=== PATIENT | female | born 1960 | race Caucasian/White ===

== ENCOUNTER 2017-06-10 16:08 | Observation (INO) | payer MEDICARE, SELFPAY ==
[2017-06-10 16:46] VITALS: BP 141/82; PULSE 104; RESP 20; TEMP 36.9; O2SAT 93; BMI 34.2
[2017-06-10 20:00] VITALS: BP 143/88; PULSE 79; RESP 18; TEMP 36.6; O2SAT 98
[2017-06-10 21:15] VITALS: O2SAT 98
[2017-06-11] VITALS (14 sets, daily range): BP systolic 99–169; BP diastolic 60–95; PULSE 59–89; RESP 16–20; TEMP 36.3–36.8; O2SAT 95–99
--- NOTE | 2017-06-11 01:00 | PC.NURSE ---
PT HAS C/O OF ABDOMINAL PAIN, EPIGASTRIC DISCOMFORT EXTENDING TO (L) OF ABD TO HER BACK. MD WAS NOTIFIED OF PT CONDITION. NO ORDERS AT THIS TIME. NO OCCULT STOOL OBTAINED AT THIS TIME. PT STATES SHE HAS NOT HAD A BM. V/S HAVE REMAINED STABLE. PT IS NPO AT THIS TIME FOR AM CONSULTS. NO OTHER CONCERNS AT THIS TIME. WILL CONTINUE TO MONITOR.
[2017-06-11 07:08] LABS: Basophils # 0.1 K/mm3 (0-0.2); Basophils % 0.5 % (0.1-2.0); Eosinophils # 0.1 K/mm3 (0.0-0.4); Eosinophils % 1.4 % (0.1-12.0); Hematocrit 41.3 % (37.0-47.0); Hemoglobin 13.8 g/dL (12.2-16.2); Lymphocytes # 3.4 K/mm3 (0.7-4.5); Lymphocytes % 37.9 K/mm3 (10-50); Mean Corpuscular HGB Conc 33.5 g/dL (31.8-35.4); Mean Corpuscular Hemoglobin 30.9 pg (27.0-31.2); Mean Corpuscular Volume 92.4 fl (81-99); Mean Platelet Volume 6.6 fl (7.4-10.4); Monocytes # 0.6 K/mm3 (0.1-1.0); Monocytes % 6.5 % (1.7-9.3); Neutrophils # 4.8 K/mm3 (1.8-7.8); Neutrophils % 53.5 % (37.0-80.0); Platelet Count 263 K/mm3 (142-424); Red Blood Count 4.47 M/mm3 (4.20-5.40); Red Cell Distribution Width 14.3 % (11.5-17.5); White Blood Count 8.9 K/mm3 (4.8-10.8)
--- NOTE | 2017-06-11 07:17 | CA_ITS ---
PROCEDURE: 2-D M-mode and color Doppler study INDICATIONS FOR THE TEST: Chest pain+ COPD Heart Murmur Tobacco Smoking Palpitations+ Fatigue Syncope Edema Hypertension+Diabetes Mellitus+ Rheumatic Fever SOB OV Obesity+Hyperlipidemia+ Family History HD Additional History PATIENT INFORMATION HEIGHT: 63 WEIGHT: 193 GENDER: Female B/P: 125/72 2-D/M-MODE INTERPRETATION: 2-D MEASUREMENTS OBSERVED VALUES IN CMS Right Ventricular Dimension (RVDd) 2.3 Interventricular Septum (Thickness)(IVsd) 1.1 Left Ventricular Internal Dimensions(LVIDd) 4.2 Left Ventricular Posterior Wall (Thickness)(LVPWd) 1.0 Aortic Root 3.0 Aortic Cusp Separation 2.2 Left Atrial Dimensions (LAD) 3.6 2D 1. Left atrium is mildly enlarged, left ventricle is normal size, there is mild concentric left ventricular hypertrophy, visually estimated ejection fraction is 55% with no obvious regional wall motion abnormality 2. The right atrium and right ventricle are normal size and contractility. 3. The aortic, mitral and tricuspid valvular grossly normal. 4. The pulmonic valve is poorly visualized. 5. No significant pericardial effusion noted. DOPPLER INTERROGATION: Doppler interrogation of the aortic, mitral and tricuspid valvular presence of mild mitral and tricuspid regurgitation, tricuspid and jet velocity is insufficient for calculation of the right ventricular systolic pressure, grade 1 diastolic dysfunction seen without tissue Doppler evidence of raised left atrial pressure. CONCLUSION: 1. Mildly enlarged left atrium, normal left ventricular size, mild concentric left ventricular hypertrophy, visually estimated ejection fraction 55% with no obvious regional wall motion abnormality, grade 1 diastolic dysfunction seen without tissue Doppler evidence of raised left atrial pressure. 2. Mild mitral and tricuspid regurgitation 3. No significant pericardial effusion noted.
[2017-06-11 07:18] LABS: Blood Urea Nitrogen 14 mg/dL (7-18); Carbon Dioxide 26 mmol/L (21.0-32.0); Chloride 103 mmol/L (98-107); Creatinine Clearance Estimated 125 mL/min (0-300); Creatinine,Serum 0.69 mg/dL (0.55-1.02); Estimated Glomerular Filt Rate 88 ml/min (>60); GFR (African American) 106 ML/MIN (>60); Glucose 233 mg/dL (74-106); Sodium 140 mmol/L (136-145)
--- NOTE | 2017-06-11 07:37 | PC.NURSE ---
PT REPORT HAND OFF TO MARY ELLIOTT
--- NOTE | 2017-06-11 07:42 | HMH.PHAVTE ---
[facility] Pharmacy VTE Monitoring - Patient Demographics Admission date: 06/10/17 Report Date: 06/11/17 Time: 07:42 Allergies/Adverse Reactions: Patient Allergies morphine [MORPHINE] Allergy (Unknown, Verified 06/10/17 17:39) NA-NAUSEA/VOMITING Height: 1.6 m Weight: 87.77 kg - VTE Risk Labs: VTE Related Lab Results Hgb 13.8 g/dL (12.2-16.2) 06/11/17 06:25 Hct 41.3 % (37.0-47.0) 06/11/17 06:25 Plt Count 263 K/mm3 (142-424) 06/11/17 06:25 BUN 14 mg/dL (7-18) 06/11/17 06:25 Creatinine 0.69 mg/dL (0.55-1.02) 06/11/17 06:25 Estimated Creat Clear 125 mL/min (0-300) 06/11/17 06:25 Was VTE Risk Assessment Performed: Yes VTE Score: 2 VTE Risk Level: Very Low Risk Clinical Trial Participant: No - Prophylaxis VTE Prophylaxis Ordered?: Yes Types of VTE Prophylaxis: TEDS Knee High Location of Applied Device: Bilateral Lower Extremeties
[2017-06-11 08:05] LABS: Occult Blood,Stool Negative (Negative)
[2017-06-11 08:12] LABS: Alanine Aminotransferase 83 U/L (12-78); Albumin Level 3.5 gm/dL (3.4-5.0); Albumin/Globulin Ratio 0.9 (1.1-1.8); Alkaline Phosphatase 64 U/L (46-116); Aspartate Amino Transferase 73 U/L (15-37); Bilirubin,Total 0.8 mg/dL (0.2-1.0); Globulin 3.9 gm/dl (1.3-3.2); Total Protein,Serum 7.4 gm/dL (6.4-8.2)
[2017-06-11 08:17] LABS: Calcium 9.2 mg/dL (8.5-10.1)
[2017-06-11 08:18] LABS: Amylase 59 U/L (25-125); Lipase 235 u/L (73-393)
--- NOTE | 2017-06-11 08:35 | HMH.GSCON ---
*Admission Date: 06/10/17 *Chief complaint: Abdominal pain *History of present illness: Patient is a 57-year-old white female. She states that for about 10 days she has had left upper quadrant pain radiating around to her back. This is sharp and intermittent. There are no exacerbating or alleviating factors. She has had some associated nausea. She states that she had presented to [facility] emergency department last week on 06/06/17 and managed as an outpatient to follow-up with her primary physician. She was seen in her primary care provider's office yesterday afternoon and admitted for inpatient management for possible GI bleed . Patient has never had a history of ulcer disease. She does have a history of gastroesophageal reflux disease. She has previously had cholecystectomy. Denies any melena. She does state that she has had some visible blood in her bowel movement. She had blood work done this morning revealing unremarkable hemoglobin and hematocrit and unremarkable electrolytes and renal function. She did have slight elevation of transaminases. Patient wants something for pain. Review of Systems - Constitutional Denies anorexia - Eyes Denies change in vision - ENT Denies abnormal hearing - *Cardiovascular Reports chest pain - *Respiratory Denies shortness of breath - *Gastrointestinal Reports abdominal pain, Denies black, tarry stools - *Musculoskeletal Reports joint pain - *Neurologic Denies abnormal walking [facility] History Medical History: Reports:: Diabetes Mellitus Type 2, Hyperlipidemia, Hypertension Denies:: Cancer, Diabetes Mellitus Type 1, MRSA Other Medical History: Reports: Thyroid Disease Other Surgeries: Yes: Hysterectomy-Total - *Social History Smoking Status: Never smoker Alcohol Intake: former Alcohol Intake Frequency:: a few times a month Occupational Status: disabled - Psychiatric History Expresses thoughts of harming self/others: None Suicide Plan Description: No Plan *Family Hx:: Cancer, Hypertension Meds Home Medications Medication Instructions Recorded Confirmed Type Hydrocodone/Acetaminophen 1 tab PO QID 06/10/17 06/10/17 History [Hydrocodone-Acetamin 7.5-325] Tizanidine HCl [Zanaflex 4mg 4 mg PO DIRECTED 06/10/17 06/11/17 History tablet] atenolol 25 mg tablet 25 mg PO QAM 06/10/17 06/10/17 History citalopram 40 mg tablet 40 mg PO DAILY tab 06/10/17 06/10/17 History gabapentin 800 mg tablet 800 mg PO QID 06/10/17 06/11/17 History glipizide ER 10 mg tablet, 10 mg PO DAILY tab 06/10/17 06/10/17 History extended release 24 hr insulin glargine (U-100) 100 8 unit SUB-Q QHS ml 06/10/17 06/10/17 History unit/mL (3 mL) subcutaneous pen levothyroxine 50 mcg tablet 50 mcg PO DAILY tab 06/10/17 06/10/17 History lisinopril 20 mg tablet 20 mg PO BID tab 06/10/17 06/10/17 History metformin 1,000 mg tablet 1,000 mg PO BID 06/10/17 06/10/17 History omeprazole 40 mg capsule,delayed 40 mg PO DAILY cap 06/10/17 06/10/17 History release pravastatin 80 mg tablet 80 mg PO QHS 06/10/17 06/10/17 History sitagliptin 100 mg tablet 100 mg PO DAILY tab 06/10/17 06/10/17 History trazodone 100 mg tablet 200 mg PO QHS PRN tab 06/10/17 06/10/17 History Allergies Allergy/AdvReac Type Severity Reaction Status Date / Time morphine [MORPHINE] Allergy Unknown NA-NAUSEA/V Verified 06/10/17 17:39 OMITING Exam Vital signs and Labs for Last 24 Hours: Temp Pulse Resp BP Pulse Ox 98.0 F 89 20 128/72 97 06/11/17 07:31 06/11/17 07:31 06/11/17 07:31 06/11/17 07:31 06/11/17 07:31 Laboratory Results - last 24 hr 06/11/17 06:25: WBC 8.9, RBC 4.47, Hgb 13.8, Hct 41.3, MCV 92.4, MCH 30.9, MCHC 33.5, RDW 14.3, Plt Count 263, MPV 6.6 L, Neut % (Auto) 53.5, Lymph % (Auto) 37.9, [place] % (Auto) 6.5, Eos % (Auto) 1.4, Baso % (Auto) 0.5, Neut # (Auto) 4.8, Lymph # (Auto) 3.4, [place] # (Auto) 0.6, Eos # (Auto) 0.1, Baso # (Auto) 0.1 06/11/17 06
--- NOTE | 2017-06-11 08:39 | P.CONS_ITS ---
*Admission Date: 06/10/17 *Chief complaint: Abdominal pain *History of present illness: Patient is a 57-year-old white female. She states that for about 10 days she has had left upper quadrant pain radiating around to her back. This is sharp and intermittent. There are no exacerbating or alleviating factors. She has had some associated nausea. She states that she had presented to [facility] emergency department last week on 06/06/17 and managed as an outpatient to follow-up with her primary physician. She was seen in her primary care provider's office yesterday afternoon and admitted for inpatient management for possible GI bleed . Patient has never had a history of ulcer disease. She does have a history of gastroesophageal reflux disease. She has previously had cholecystectomy. Denies any melena. She does state that she has had some visible blood in her bowel movement. She had blood work done this morning revealing unremarkable hemoglobin and hematocrit and unremarkable electrolytes and renal function. She did have slight elevation of transaminases. Patient wants something for pain. Review of Systems - Constitutional Denies anorexia - Eyes Denies change in vision - ENT Denies abnormal hearing - *Cardiovascular Reports chest pain - *Respiratory Denies shortness of breath - *Gastrointestinal Reports abdominal pain, Denies black, tarry stools - *Musculoskeletal Reports joint pain - *Neurologic Denies abnormal walking [facility] History Medical History: Reports:: Diabetes Mellitus Type 2, Hyperlipidemia, Hypertension Denies:: Cancer, Diabetes Mellitus Type 1, MRSA Other Medical History: Reports: Thyroid Disease Other Surgeries: Yes: Hysterectomy-Total - *Social History Smoking Status: Never smoker Alcohol Intake: former Alcohol Intake Frequency:: a few times a month Occupational Status: disabled - Psychiatric History Expresses thoughts of harming self/others: None Suicide Plan Description: No Plan *Family Hx:: Cancer, Hypertension Meds Home Medications Medication Instructions Recorded Confirmed Type Hydrocodone/Acetaminophen 1 tab PO QID 06/10/17 06/10/17 History [Hydrocodone-Acetamin 7.5-325] Tizanidine HCl [Zanaflex 4mg 4 mg PO DIRECTED 06/10/17 06/11/17 History tablet] atenolol 25 mg tablet 25 mg PO QAM 06/10/17 06/10/17 History citalopram 40 mg tablet 40 mg PO DAILY tab 06/10/17 06/10/17 History gabapentin 800 mg tablet 800 mg PO QID 06/10/17 06/11/17 History glipizide ER 10 mg tablet, 10 mg PO DAILY tab 06/10/17 06/10/17 History extended release 24 hr insulin glargine (U-100) 100 8 unit SUB-Q QHS ml 06/10/17 06/10/17 History unit/mL (3 mL) subcutaneous pen levothyroxine 50 mcg tablet 50 mcg PO DAILY tab 06/10/17 06/10/17 History lisinopril 20 mg tablet 20 mg PO BID tab 06/10/17 06/10/17 History metformin 1,000 mg tablet 1,000 mg PO BID 06/10/17 06/10/17 History omeprazole 40 mg capsule,delayed 40 mg PO DAILY cap 06/10/17 06/10/17 History release pravastatin 80 mg tablet 80 mg PO QHS 06/10/17 06/10/17 History sitagliptin 100 mg tablet 100 mg PO DAILY tab 06/10/17 06/10/17 History trazodone 100 mg tablet 200 mg PO QHS PRN tab 06/10/17 06/10/17 History Allergies Allergy/AdvReac Type Severity Reaction Status Date / Time morphine [MORPHINE] Allergy Unknown NA-NAUSEA/V Verified 06/10/17 17:39 OMITING Exa
--- NOTE | 2017-06-11 08:51 | HMH.CNCARD ---
History of Present Illness Consult date: 06/11/17 Requesting physician: Jeff Emerson Consult reason: chest pain Chief complaint: chest pain, abdominal pain Additional Medical History:: 1. Diabetes mellitus type 2 2. Hypertension 3. Hyperlipidemia 4. Family history of coronary artery disease in sibling and parent 5. Chronic low back pain 6. History of sepsis with medically induced coma and prolonged ventilator support, 2011. History of present illness: 57-year-old white female with 2 week history of both chest and abdominal pain. Symptoms may occur with activity and at rest. She has noted some recent black stools along with bright red blood per rectum as well. Patient denies any NSAID use. Patient was seen in the emergency department last week in [facility]. Workup was unremarkable and patient was discharged with plans to follow-up with PCP. Patient was seen in her PCP's office yesterday with recurrent chest pain, abdominal pain and shortness of breath and admitted for further evaluation. EKG this admission shows sinus rhythm without acute changes. Preliminary echocardiogram today shows normal left ventricular size and function with no significant valvular heart disease. Patient relates she was given nitroglycerin last week in the ER without significant improvement in symptoms but rather had a gradual improvement over time. She describes the chest discomfort as on the left side with some pressure sensation but also some abdominal discomfort without N, V or diarrhea. Radiology consulted for evaluation. [facility] History Medical History: Reports:: Diabetes Mellitus Type 2, Hyperlipidemia, Hypertension Denies:: Cancer, Diabetes Mellitus Type 1, MRSA Other Medical History: Reports: Thyroid Disease Other Surgeries: Yes: Hysterectomy-Total - *Social History Smoking Status: Never smoker Alcohol Intake: former Alcohol Intake Frequency:: a few times a month Occupational Status: disabled - Psychiatric History Expresses thoughts of harming self/others: None Suicide Plan Description: No Plan *Family Hx:: Cancer, Hypertension Meds Home Medications Medication Instructions Recorded Confirmed Type Hydrocodone/Acetaminophen 1 tab PO QID 06/10/17 06/10/17 History [Hydrocodone-Acetamin 7.5-325] Tizanidine HCl [Zanaflex 4mg 4 mg PO DIRECTED 06/10/17 06/11/17 History tablet] atenolol 25 mg tablet 25 mg PO QAM 06/10/17 06/10/17 History citalopram 40 mg tablet 40 mg PO DAILY tab 06/10/17 06/10/17 History gabapentin 800 mg tablet 800 mg PO QID 06/10/17 06/11/17 History glipizide ER 10 mg tablet, 10 mg PO DAILY tab 06/10/17 06/10/17 History extended release 24 hr insulin glargine (U-100) 100 8 unit SUB-Q QHS ml 06/10/17 06/10/17 History unit/mL (3 mL) subcutaneous pen levothyroxine 50 mcg tablet 50 mcg PO DAILY tab 06/10/17 06/10/17 History lisinopril 20 mg tablet 20 mg PO BID tab 06/10/17 06/10/17 History metformin 1,000 mg tablet 1,000 mg PO BID 06/10/17 06/10/17 History omeprazole 40 mg capsule,delayed 40 mg PO DAILY cap 06/10/17 06/10/17 History release pravastatin 80 mg tablet 80 mg PO QHS 06/10/17 06/10/17 History sitagliptin 100 mg tablet 100 mg PO DAILY tab 06/10/17 06/10/17 History trazodone 100 mg tablet 200 mg PO QHS PRN tab 06/10/17 06/10/17 History Allergies Allergy/AdvReac Type Severity Reaction Status Date / Time morphine [MORPHINE] Allergy Unknown NA-NAUSEA/V Verified 06/10/17 17:39 OMITING Review of Systems - *Cardiovascular Reports chest pain at rest, Reports chest pain with activity, Reports shortness of breath, Reports shortness of breath with activity - *Respiratory Reports shortness of breath, Reports shortness of breath with activity - *Gastrointestinal Reports abdominal pain, Reports bright, red blood in stools, Reports black, tarry stools - *Musculoskeletal Reports joint pain, Reports back pain - *Neurologic Denies abnormal walking, Denies abnormal hear
--- NOTE | 2017-06-11 09:19 | PC.NURSE ---
Pt transported off floor via Wheelchair for EGD.
--- NOTE | 2017-06-11 09:27 | HMH.ANESCL ---
[facility] Anesthesia Checklist - Patient Identification Patient Identification: Arm Band, Verbal (Name & ) - Structural Data Admitted From: Inpatient Planned Operative Procedure/s: egd Consent for Planned Operative Procedure(s) Verified: Yes Verified Documents: Surgical Consent - NPO Status Verified Time NPO: 00:00 - Chart Verification Results Verified: CBC, BMP - Additional verifications Patient : No Anesthesia Reactions: No Hx Blood Transfusions: No Blood Transfusion Reaction: No Cephalosporin Allergy: No Previous Colonoscopy: No - Cardiovascular Assessment Pulse Strength: Baseline Pulse Rhythm: Regular Peripheral Edema: No - Airway Assessment C-Spine Mobility Assessed: Yes TMJ Mobility Assessed: Yes Dentition: Dentures-good fit - Neurological Assessment Level of Consciousness: Awake, Alert, Appropriate Hx Seizures: No Numbness or tingling in extremities: No - Anesthesia Plan Anesthesia Risk discussed: Yes ASA Class: III Anesthesia Type: MAC [facility] Anesthesia HX I have reviewed the patient's past medical history: Yes Medical History: Reports:: Diabetes Mellitus Type 2, Hyperlipidemia, Hypertension Denies:: Cancer, Diabetes Mellitus Type 1, MRSA Other Medical History: Reports: Thyroid Disease Laterality Cases: Bilateral: Arthroscopy Shoulder Other Surgeries: Yes: Hysterectomy-Total Amputation: No Fractures: No *Family Hx:: Cancer, Hypertension
[2017-06-11 09:30] LABS: Creatine Kinase 67 U/L (26-192); Troponin I < 0.02 ng/ml (0.00-0.06)
[2017-06-11 09:31] LABS: CKMB Relative Index 0.7 U/L (0-4.0); Creatine Kinase MB < 0.5 mg/ml (0.0-3.6)
--- NOTE | 2017-06-11 09:46 | HMH.SCOPE ---
- Procedure: Date: 06/11/17 Procedure Performed:: Esophagogastroduodenoscopy with biopsies Indications:: Patient is a 57-year-old white female. For about 10 days she has had intermittent severe sharp left upper quadrant pain radiating into her back. There are no associated symptoms other than some nausea. She had been seen in the emergency department at [facility] a week ago and apparently workup was unremarkable and she was devised to follow-up with her primary care provider which she did yesterday afternoon. She was then admitted for inpatient management due to symptoms of epigastric pain and chest pain for additional workup. Surgical consultation was obtained for upper endoscopy. Patient has previously had cholecystectomy. Performing Provider:: Abdoulaye Santiago MD Referring Provider:: Johann mEerson MD Sedation:: Propofol Procedure:: Consent was obtained and patient was taken to same-day surgery endoscopy procedure room. She was positioned in a lateral decubitus position. Adequate intravenous sedation was achieved with anesthesia titration of propofol. Olympus endoscope was inserted via the oropharynx and advanced through the esophagus. Esophagus appeared normal. Stomach was cannulated and insufflated. There was some bilious liquid within the stomach which was suctioned free. Retroflexion revealed no evidence of any appreciable hiatal hernia. Within the antrum there is some nonerosive patchy gastritis characterized by erythema and mild induration. Gastric antral mucosal biopsy was obtained for CLOtest for H. pylori. Additional biopsy was obtained for histopathologic analysis. Pylorus was traversed. Duodenal bulb and duodenal sweep appeared relatively unremarkable. Endoscope was withdrawn. Findings:: Mild to moderate nonerosive antral gastritis Recommendations:: Continue proton pump inhibitors. May start a diet after cardiology procedures are complete today. Complications:: None Estimated blood obtained (mL): 2
--- NOTE | 2017-06-11 09:49 | P.PCN_ITS ---
- Procedure: Date: 06/11/17 Procedure Performed:: Esophagogastroduodenoscopy with biopsies Indications:: Patient is a 57-year-old white female. For about 10 days she has had intermittent severe sharp left upper quadrant pain radiating into her back. There are no associated symptoms other than some nausea. She had been seen in the emergency department at [facility] a week ago and apparently workup was unremarkable and she was devised to follow-up with her primary care provider which she did yesterday afternoon. She was then admitted for inpatient management due to symptoms of epigastric pain and chest pain for additional workup. Surgical consultation was obtained for upper endoscopy. Patient has previously had cholecystectomy. Performing Provider:: Abdoulaye Santiago MD Referring Provider:: Johann Emerson MD Sedation:: Propofol Procedure:: Consent was obtained and patient was taken to same-day surgery endoscopy procedure room. She was positioned in a lateral decubitus position. Adequate intravenous sedation was achieved with anesthesia titration of propofol. Olympus endoscope was inserted via the oropharynx and advanced through the esophagus. Esophagus appeared normal. Stomach was cannulated and insufflated. There was some bilious liquid within the stomach which was suctioned free. Retroflexion revealed no evidence of any appreciable hiatal hernia. Within the antrum there is some nonerosive patchy gastritis characterized by erythema and mild induration. Gastric antral mucosal biopsy was obtained for CLOtest for H. pylori. Additional biopsy was obtained for histopathologic analysis. Pylorus was traversed. Duodenal bulb and duodenal sweep appeared relatively unremarkable. Endoscope was withdrawn. Findings:: Mild to moderate nonerosive antral gastritis Recommendations:: Continue proton pump inhibitors. May start a diet after cardiology procedures are complete today. Complications:: None Estimated blood obtained (mL): 2
--- NOTE | 2017-06-11 12:00 | NM_ITS ---
NM cecilia perf SPECT rest str CLINICAL INDICATION: Chest pain, hypertension, diabetes, hypercholesterolemia, positive family history ITS.REASON: chest pain ORDERING PHYSICIAN: Jeff Emerson MD PATIENT AGE: 57 years COMPARISON: None DOSE: 10.77 mCi technetium Myoview intravenously at rest followed by 32.1 mCi technetium Myoview following the intravenous administration of 0.4 mg of Lexiscan. Resting blood pressure is 135/89. Stress blood pressure 199/110. FINDINGS: Ejection fraction is calculated to be 58%. SPECT and polar map images reviewed. No fixed or reversible defects are evident that would indicate infarction or ischemia IMPRESSION: 1. Normal ejection fraction of 58%. 2. No evidence of ischemia or infarction
--- NOTE | 2017-06-11 12:16 | SUR.PHASEII ---
Pt remained in procedure room for recovery care. Did not transport to Post op. Pt came directly into procedure room from 2nd and directly back to 2nd after recovery period.
--- NOTE | 2017-06-11 12:38 | PC.NURSE ---
1220 - Pt transferred off floor via wheelchair for Nuclear stress test.
--- NOTE | 2017-06-11 15:02 | HMH.ITSHM ---
atenolol celexa gabapentin levothyroxine protonix pravastatin desyrel
--- NOTE | 2017-06-11 15:07 | PC.NURSE ---
Pt continues to be off floor for nuclear stress test
--- NOTE | 2017-06-11 15:29 | PC.NURSE ---
1525 - Pt returned to room 212 via wheelchair from [employer]. No distress noted.
--- NOTE | 2017-06-11 15:32 | PC.NURSE ---
5228 - Received call from Dr Jonas regarding results of cardiolyte stress test. EF 58%, no ischemia noted. Results called to Reji at Dr Ceron's office and Dr Emerson.
--- NOTE | 2017-06-11 15:48 | PC.NURSE ---
57 y/o female admitted with c/o abdominal pain. Pt A&Ox3 in NAD. VSS. Afebrile. C/O LUQ abd pain 6/10. Heart rate reg. Lungs CTA throughout all pabon. Abd soft and tender /c active BS x4 quads. IV (L) FA infusing LR @ 50ml/hr /s difficulty. No s/s of infection/infiltration noted at insertion site. Pt underwent an EGD by Dr Santiago this AM. Post op vitals remained WNL. Pt also had a nuclear stress test this shift. Pt refuses MADISON hose to BLE. Bed in low position, call spence within reach. Visitors at bedside intermittently this shift. Will continue to monitor pt status.
--- NOTE | 2017-06-11 16:32 | HMH.HPDC ---
General - General Admission date: 06/10/17 Discharge date: 06/11/17 *Admission Date: 06/10/17 *Chief complaint: abd pain *History of present illness: Patient is a 57-year-old white female. She states that for about 10 days she has had left upper quadrant pain radiating around to her back. This is sharp and intermittent. There are no exacerbating or alleviating factors. She has had some associated nausea. She states that she had presented to [facility] emergency department last week on 06/06/17 and managed as an outpatient to follow-up with her primary physician. She was seen in her primary care provider's office yesterday afternoon and admitted for inpatient management for possible GI bleed . Patient has never had a history of ulcer disease. She does have a history of gastroesophageal reflux disease. She has previously had cholecystectomy. Denies any melena. She does state that she has had some visible blood in her bowel movement. She had blood work done this morning revealing unremarkable hemoglobin and hematocrit and unremarkable electrolytes and renal function. She did have slight elevation of transaminases. Patient wants something for pain. pt was seen in office and had progressive upper abd pain with dark stool and chest pain - [facility] History I have reviewed the patient's past medical history: Yes Medical History: Reports:: Diabetes Mellitus Type 2, Hyperlipidemia, Hypertension Denies:: Cancer, Diabetes Mellitus Type 1, MRSA, Seizures Other Medical History: Reports: Thyroid Disease. Denies: Blood Transfusion Reaction Laterality Cases: Bilateral: Arthroscopy Shoulder Other Surgeries: Yes: Hysterectomy-Total Amputation: No Fractures: No - *Social History Smoking Status: Never smoker Alcohol Intake: former Alcohol Intake Frequency:: a few times a month Occupational Status: disabled - Psychiatric History Expresses thoughts of harming self/others: None Suicide Plan Description: No Plan *Family Hx:: Cancer, Hypertension Review of Systems - Review of Systems Review of systems:: pertinent systems reviewed and negative unless documented below - Constitutional Denies fever(s) - Eyes Denies change in vision - ENT Denies neck pain, Denies throat swelling - *Cardiovascular Reports chest pain at rest - *Respiratory Denies cough - *Gastrointestinal Reports abdominal pain, Reports heartburn, Reports black, tarry stools, Denies coffee ground vomit - *Musculoskeletal Denies joint pain, Denies joint swelling - Integumentary/Breasts Denies rash - *Neurologic Denies abnormal walking, Denies abnormal hearing Exam Vital signs and Labs for Last 24 Hours: Temp Pulse Resp BP Pulse Ox 97.8 F 67 16 168/95 95 06/11/17 12:02 06/11/17 12:02 06/11/17 12:02 06/11/17 12:02 06/11/17 12:02 Laboratory Results - last 24 hr 06/11/17 06:25: WBC 8.9, RBC 4.47, Hgb 13.8, Hct 41.3, MCV 92.4, MCH 30.9, MCHC 33.5, RDW 14.3, Plt Count 263, MPV 6.6 L, Neut % (Auto) 53.5, Lymph % (Auto) 37.9, [place] % (Auto) 6.5, Eos % (Auto) 1.4, Baso % (Auto) 0.5, Neut # (Auto) 4.8, Lymph # (Auto) 3.4, [place] # (Auto) 0.6, Eos # (Auto) 0.1, Baso # (Auto) 0.1 06/11/17 06:25: Sodium 140, Potassium 4.0, Chloride 103, Carbon Dioxide 26, Anion Gap 15.0, BUN 14, Creatinine 0.69, Estimated Creat Clear 125, Estimated GFR 88, Est GFR ( Amer) 106, Glucose 233 H, Calcium 9.2, Total Bilirubin 0.8, AST 73 H, ALT 83 H, Alkaline Phosphatase 64, Total Protein 7.4, Albumin 3.5, Globulin 3.9 H, Albumin/Globulin Ratio 0.9 L 06/11/17 06:25: Total Creatine Kinase 67, CK-MB (CK-2) < 0.5, CK-MB (CK-2) Rel Index 0.7, Troponin I < 0.02 06/11/17 06:28: Amylase 59, Lipase 235 06/11/17 06:59: Stool Occult Blood Negative I & O for Last 24 hours: Intake & Output 06/09/17 06/10/17 06/11/17 06/12/17 11:59 11:59 11:59 11:59 Intake Total 1055 / 1055 Output Total 400 / 400 Balance 655 / 655 Weight 193 lb 8 oz - Consti
--- NOTE | 2017-06-11 16:35 | P.HPDS_ITS ---
General - General Admission date: 06/10/17 Discharge date: 06/11/17 *Admission Date: 06/10/17 *Chief complaint: abd pain *History of present illness: Patient is a 57-year-old white female. She states that for about 10 days she has had left upper quadrant pain radiating around to her back. This is sharp and intermittent. There are no exacerbating or alleviating factors. She has had some associated nausea. She states that she had presented to [facility] emergency department last week on 06/06/17 and managed as an outpatient to follow-up with her primary physician. She was seen in her primary care provider's office yesterday afternoon and admitted for inpatient management for possible GI bleed . Patient has never had a history of ulcer disease. She does have a history of gastroesophageal reflux disease. She has previously had cholecystectomy. Denies any melena. She does state that she has had some visible blood in her bowel movement. She had blood work done this morning revealing unremarkable hemoglobin and hematocrit and unremarkable electrolytes and renal function. She did have slight elevation of transaminases. Patient wants something for pain. pt was seen in office and had progressive upper abd pain with dark stool and chest pain - [facility] History I have reviewed the patient's past medical history: Yes Medical History: Reports:: Diabetes Mellitus Type 2, Hyperlipidemia, Hypertension Denies:: Cancer, Diabetes Mellitus Type 1, MRSA, Seizures Other Medical History: Reports: Thyroid Disease. Denies: Blood Transfusion Reaction Laterality Cases: Bilateral: Arthroscopy Shoulder Other Surgeries: Yes: Hysterectomy-Total Amputation: No Fractures: No - *Social History Smoking Status: Never smoker Alcohol Intake: former Alcohol Intake Frequency:: a few times a month Occupational Status: disabled - Psychiatric History Expresses thoughts of harming self/others: None Suicide Plan Description: No Plan *Family Hx:: Cancer, Hypertension Review of Systems - Review of Systems Review of systems:: pertinent systems reviewed and negative unless documented below - Constitutional Denies fever(s) - Eyes Denies change in vision - ENT Denies neck pain, Denies throat swelling - *Cardiovascular Reports chest pain at rest - *Respiratory Denies cough - *Gastrointestinal Reports abdominal pain, Reports heartburn, Reports black, tarry stools, Denies coffee ground vomit - *Musculoskeletal Denies joint pain, Denies joint swelling - Integumentary/Breasts Denies rash - *Neurologic Denies abnormal walking, Denies abnormal hearing Exam Vital signs and Labs for Last 24 Hours: Temp Pulse Resp BP Pulse Ox 97.8 F 67 16 168/95 95 06/11/17 12:02 06/11/17 12:02 06/11/17 12:02 06/11/17 12:02 06/11/17 12:02 Laboratory Results - last 24 hr 06/11/17 06:25: WBC 8.9, RBC 4.47, Hgb 13.8, Hct 41.3, MCV 92.4, MCH 30.9, MCHC 33.5, RDW 14.3, Plt Count 263, MPV 6.6 L, Neut % (Auto) 53.5, Lymph % (Auto) 37.9, [place] % (Auto) 6.5, Eos % (Auto) 1.4, Baso % (Auto) 0.5, Neut # (Auto) 4.8 , Lymph # (Auto) 3.4, [place] # (Auto) 0.6, Eos # (Auto) 0.1, Baso # (Auto) 0.1 06/11/17 06:25: Sodium 140, Potassium 4.0, Chloride 103, Carbon Dioxide 26, Anion Gap 15.0, BUN 14, Creatinine 0.69, Estimated Creat Clear 125, Estimated GFR 88, Est GFR ( Amer) 106, Glucose 233 H, Calcium 9.2, Total Bilirubin 0.8, AST 73 H, ALT 83 H, Alkaline Phosphatase 64, Total Protein 7.4, Albumin 3.5 , Globulin 3.9 H, Albumin/Globulin Ratio 0
[2017-06-19 15:00] LABS: POC Glucose,Bedside 210 mg/dL (70-110)
[2017-06-19 15:02] LABS: POC Glucose,Bedside 234 mg/dL (70-110)
[2017-06-19 15:02] LABS: POC Glucose,Bedside 284 mg/dL (70-110)
[2017-06-19 15:03] LABS: POC Glucose,Bedside 235 mg/dL (70-110)
--- NOTE | 2017-07-03 09:48 | P.CONS_ITS ---
History of Present Illness Consult date: 06/11/17 Requesting physician: Jeff Emerson Consult reason: chest pain Chief complaint: chest pain, abdominal pain Additional Medical History:: 1. Diabetes mellitus type 2 2. Hypertension 3. Hyperlipidemia 4. Family history of coronary artery disease in sibling and parent 5. Chronic low back pain 6. History of sepsis with medically induced coma and prolonged ventilator support, 2011. History of present illness: 57-year-old white female with 2 week history of both chest and abdominal pain. Symptoms may occur with activity and at rest. She has noted some recent black stools along with bright red blood per rectum as well. Patient denies any NSAID use. Patient was seen in the emergency department last week in [facility]. Workup was unremarkable and patient was discharged with plans to follow -up with PCP. Patient was seen in her PCP's office yesterday with recurrent chest pain, abdominal pain and shortness of breath and admitted for further evaluation. EKG this admission shows sinus rhythm without acute changes. Preliminary echocardiogram today shows normal left ventricular size and function with no significant valvular heart disease. Patient relates she was given nitroglycerin last week in the ER without significant improvement in symptoms but rather had a gradual improvement over time. She describes the chest discomfort as on the left side with some pressure sensation but also some abdominal discomfort without N, V or diarrhea. Radiology consulted for evaluation. [facility] History Medical History: Reports:: Diabetes Mellitus Type 2, Hyperlipidemia, Hypertension Denies:: Cancer, Diabetes Mellitus Type 1, MRSA Other Medical History: Reports: Thyroid Disease Other Surgeries: Yes: Hysterectomy-Total - *Social History Smoking Status: Never smoker Alcohol Intake: former Alcohol Intake Frequency:: a few times a month Occupational Status: disabled - Psychiatric History Expresses thoughts of harming self/others: None Suicide Plan Description: No Plan *Family Hx:: Cancer, Hypertension Meds Home Medications Medication Instructions Recorded Confirmed Type Hydrocodone/Acetaminophen 1 tab PO QID 06/10/17 06/10/17 History [Hydrocodone-Acetamin 7.5-325] Tizanidine HCl [Zanaflex 4mg 4 mg PO DIRECTED 06/10/17 06/11/17 History tablet] atenolol 25 mg tablet 25 mg PO QAM 06/10/17 06/10/17 History citalopram 40 mg tablet 40 mg PO DAILY tab 06/10/17 06/10/17 History gabapentin 800 mg tablet 800 mg PO QID 06/10/17 06/11/17 History glipizide ER 10 mg tablet, 10 mg PO DAILY tab 06/10/17 06/10/17 History extended release 24 hr insulin glargine (U-100) 100 8 unit SUB-Q QHS ml 06/10/17 06/10/17 History unit/mL (3 mL) subcutaneous pen levothyroxine 50 mcg tablet 50 mcg PO DAILY tab 06/10/17 06/10/17 History lisinopril 20 mg tablet 20 mg PO BID tab 06/10/17 06/10/17 History metformin 1,000 mg tablet 1,000 mg PO BID 06/10/17 06/10/17 History omeprazole 40 mg capsule,delayed 40 mg PO DAILY cap 06/10/17 06/10/17 History release pravastatin 80 mg tablet 80 mg PO QHS 06/10/17 06/10/17 History sitagliptin 100 mg tablet 100 mg PO DAILY tab 06/10/17 06/10/17 History trazodone 100 mg tablet 200 mg PO QHS PRN tab 06/10/17 06/10/17 History Allergies Allergy/AdvReac Type Severity Reaction Status Date / Time morphine [MORPHINE] Allergy Unknown NA-NAUSEA/V Verified 06/10/17 17:39 OMITING
== END 2017-06-11 17:22 | disposition home or self-care (01) ==
PROVIDERS: Physician Assistant; Surgery; Admitting Provider Emergency Medicine; PCP Nurse Anesthetist, Certified Registered; Visit Provider Emergency Medicine
PROC: 0DJ08ZZ Inspection of Upper Intestinal Tract, Via Natural or Artificial Opening Endoscopic (ICD-10-PCS; CPT 43235; principal; 2017-06-11 09:30)
DX: K29.70 Gastritis, unspecified, without bleeding (principal); I10 Essential (primary) hypertension; E11.69 Type 2 diabetes mellitus with other specified complication; R10.12 Left upper quadrant pain; R07.9 Chest pain, unspecified
CPT/HCPCS: 43239; 78452; 80053; 82150; 82272; 82550; 82553; 82962; 83690; 84484; 85025; 87339; 88305; 93005; 93017; 93306; A9502; G0328; G0378; J2785

== ENCOUNTER → 2017-06-18 14:48 | Outpatient (REF) | payer MEDICARE, SELFPAY ==
[2017-06-18 18:53] LABS: Basophils # 0.1 K/mm3 (0-0.2); Basophils % 0.7 % (0.1-2.0); Eosinophils # 0.1 K/mm3 (0.0-0.4); Hematocrit 38.2 % (37.0-47.0); Hemoglobin 12.7 g/dL (12.2-16.2); Lymphocytes # 3.5 K/mm3 (0.7-4.5); Lymphocytes % 48.4 K/mm3 (10-50); Mean Corpuscular HGB Conc 33.3 g/dL (31.8-35.4); Mean Corpuscular Hemoglobin 31.6 pg (27.0-31.2); Mean Corpuscular Volume 95.1 fl (81-99); Mean Platelet Volume 8.1 fl (7.4-10.4); Monocytes # 0.5 K/mm3 (0.1-1.0); Monocytes % 6.8 % (1.7-9.3); Platelet Count 199 K/mm3 (142-424); Red Blood Count 4.02 M/mm3 (4.20-5.40); Red Cell Distribution Width 13.4 % (11.5-17.5); White Blood Count 7.2 K/mm3 (4.8-10.8)
[2017-06-18 19:32] LABS: Alanine Aminotransferase 67 U/L (12-78); Albumin Level 3.7 gm/dL (3.4-5.0); Albumin/Globulin Ratio 1.1 (1.1-1.8); Alkaline Phosphatase 61 U/L (46-116); Anion Gap 11.5 mEq/L (5-15); Aspartate Amino Transferase 37 U/L (15-37); Bilirubin,Total 0.5 mg/dL (0.2-1.0); Blood Urea Nitrogen 13 mg/dL (7-18); Calcium 8.5 mg/dL (8.5-10.1); Carbon Dioxide 26 mmol/L (21.0-32.0); Chloride 101 mmol/L (98-107); Cholesterol 242 mg/dL (140-200); Creatinine,Serum 0.93 mg/dL (0.55-1.02); Estimated Glomerular Filt Rate 62 ml/min (>60); GFR (African American) 75 ML/MIN (>60); Globulin 3.3 gm/dl (1.3-3.2); Glucose 256 mg/dL (74-106); HDL Cholesterol 48 mg/dL (29-89); LDL Cholesterol 131 mg/dL (0-130); Potassium 4.5 mmoL/L (3.5-5.1); Sodium 134 mmol/L (136-145); T4 (Thyroxine) 8.6 ug/dl (4.7-13.3); Thyroid Stimulating Hormone 1.55 uIU/ml (0.358-3.740); Triglycerides 315 mg/dL (30-200); VLDL Cholesterol 63 mg/dL (0-40)
[2017-06-18 20:03] LABS: Hemoglobin A1C 7.7 % (0.0-7.0)
[2017-06-20 11:38] LABS: Microalbumin, Urine <3.0 ug/mL (Not Estab.)
== END ==
LOC: LAB 14:48
PROVIDERS: Visit Provider Physician Assistant
DX: E11.9 Type 2 diabetes mellitus without complications (principal); K29.00 Acute gastritis without bleeding
CPT/HCPCS: 80053; 80061; 82043; 83036; 84436; 84443; 85025

== ENCOUNTER → 2017-07-31 12:16 | Outpatient (CLI) | payer MEDICARE, SELFPAY | PROVIDERS: Visit Provider Physician Assistant | DX: N76.0 Acute vaginitis (principal) | CPT/HCPCS: 87210 ==

== ENCOUNTER → 2018-05-14 10:03 | Outpatient (CLI) | payer MEDICARE, SELFPAY ==
[2018-05-14 14:02] LABS: Basophils # 0.1 K/mm3 (0-0.2); Basophils % 0.8 % (0.1-2.0); Eosinophils # 0.1 K/mm3 (0.0-0.4); Eosinophils % 1.1 % (0.1-12.0); Hematocrit 47.9 % (37.0-47.0); Hemoglobin 15.6 g/dL (12.2-16.2); Lymphocytes # 3.4 K/mm3 (0.7-4.5); Lymphocytes % 41.9 % (10-50); Mean Corpuscular HGB Conc 32.7 g/dL (31.8-35.4); Mean Corpuscular Hemoglobin 30.3 pg (27.0-31.2); Mean Corpuscular Volume 92.7 fl (81-99); Mean Platelet Volume 8.2 fl (7.4-10.4); Monocytes # 0.5 K/mm3 (0.1-1.0); Monocytes % 6.3 % (1.7-9.3); Neutrophils % 49.8 % (37.0-80.0); Platelet Count 287 K/mm3 (142-424); Red Blood Count 5.16 M/mm3 (4.20-5.40); Red Cell Distribution Width 13.2 % (11.5-17.5)
[2018-05-14 14:22] LABS: Alanine Aminotransferase 69 U/L (12-78); Albumin Level 4.1 gm/dL (3.4-5.0); Albumin/Globulin Ratio 1.2 (1.1-1.8); Alkaline Phosphatase 81 U/L (46-116); Anion Gap 18.2 mEq/L (5-15); Aspartate Amino Transferase 51 U/L (15-37); Bilirubin,Total 0.8 mg/dL (0.2-1.0); Blood Urea Nitrogen 9 mg/dL (7-18); Calcium 9.5 mg/dL (8.5-10.1); Carbon Dioxide 22 mmol/L (21.0-32.0); Chloride 100 mmol/L (98-107); Chol/HDL Ratio 4.1 (1-3.5); Cholesterol 187 mg/dL (140-200); Creatinine,Serum 0.78 mg/dL (0.55-1.02); Estimated Glomerular Filt Rate 76 ml/min (>60); Free T4 (Free Thyroxine) 1.31 ng/dl (0.76-1.46); GFR (African American) 92 ML/MIN (>60); Globulin 3.5 gm/dl (1.3-3.2); Glucose 192 mg/dL (74-106); HDL Cholesterol 46 mg/dL (29-89); LDL Cholesterol 105 mg/dL (0-130); Potassium 4.2 mmoL/L (3.5-5.1); Sodium 136 mmol/L (136-145); Total Protein,Serum 7.6 gm/dL (6.4-8.2); Triglycerides 178 mg/dL (30-200); VLDL Cholesterol 36 mg/dL (0-40)
[2018-05-14 15:16] LABS: Thyroid Stimulating Hormone 1.37 uIU/ml (0.358-3.740)
[2018-05-15 10:21] LABS: Creatinine, Urine 44.4 mg/dL (Not Estab.); Microalbumin, Urine 113.7 ug/mL (Not Estab.)
[2018-05-15 17:14] LABS: Vitamin D 25 Hydroxy 19.6 ng/mL (30.0-100.0)
== END ==
PROVIDERS: Visit Provider Physician Assistant
DX: R07.9 Chest pain, unspecified; N76.0 Acute vaginitis; E11.9 Type 2 diabetes mellitus without complications; I10 Essential (primary) hypertension; R10.12 Left upper quadrant pain; Z79.84 Long term (current) use of oral hypoglycemic drugs; E78.5 Hyperlipidemia, unspecified; E55.9 Vitamin D deficiency, unspecified
CPT/HCPCS: 80053; 80061; 82043; 82570; 82652; 83036; 84439; 84443; 85025; 87210

== ENCOUNTER → 2018-06-09 17:20 | Outpatient (CLI) | payer MEDICARE, SELFPAY | PROVIDERS: Visit Provider Nurse Practitioner Family | DX: R30.0 Dysuria (principal) | CPT/HCPCS: 87086 ==

== ENCOUNTER → 2019-03-11 13:21 | Outpatient (CLI) | payer MEDICARE, SELFPAY ==
[2019-03-11 14:01] LABS: Basophils # 0.1 K/mm3 (0-0.2); Basophils % 0.5 % (0.1-2.0); Eosinophils # 0.1 K/mm3 (0.0-0.4); Eosinophils % 1.3 % (0.1-12.0); Hemoglobin 14.3 g/dL (12.2-16.2); Lymphocytes # 3.9 K/mm3 (0.7-4.5); Mean Corpuscular HGB Conc 32.4 g/dL (31.8-35.4); Mean Corpuscular Volume 95.6 fl (81-99); Mean Platelet Volume 9.1 fl (7.4-10.4); Monocytes # 0.5 K/mm3 (0.1-1.0); Monocytes % 5.1 % (1.7-9.3); Neutrophils # 5.1 K/mm3 (1.8-7.8); Neutrophils % 53.2 % (37.0-80.0); Platelet Count 283 K/mm3 (142-424); Red Blood Count 4.61 M/mm3 (4.20-5.40); Red Cell Distribution Width 14.9 % (11.5-17.5); White Blood Count 9.6 K/mm3 (4.8-10.8)
[2019-03-11 14:14] LABS: Alanine Aminotransferase 45 U/L (12-78); Albumin Level 3.7 gm/dL (3.4-5.0); Albumin/Globulin Ratio 1.1 (1.1-1.8); Alkaline Phosphatase 73 U/L (46-116); Anion Gap 15.5 mEq/L (5-15); Aspartate Amino Transferase 33 U/L (15-37); Bilirubin,Total 0.4 mg/dL (0.2-1.0); Blood Urea Nitrogen 14 mg/dL (7-18); Calcium 8.8 mg/dL (8.5-10.1); Carbon Dioxide 23 mmol/L (21.0-32.0); Chloride 99 mmol/L (98-107); Chol/HDL Ratio 5.2 (1-3.5); Cholesterol 237 mg/dL (140-200); Creatinine,Serum 0.89 mg/dL (0.55-1.02); Estimated Glomerular Filt Rate 65 ml/min (>60); GFR (African American) 79 ML/MIN (>60); Globulin 3.5 gm/dl (1.3-3.2); Glucose 272 mg/dL (74-106); HDL Cholesterol 46 mg/dL (29-89); Potassium 4.5 mmoL/L (3.5-5.1); Sodium 133 mmol/L (136-145); T4 (Thyroxine) 8.8 ug/dl (4.7-13.3); Thyroid Stimulating Hormone 2.92 uIU/ml (0.358-3.740); Total Protein,Serum 7.2 gm/dL (6.4-8.2)
[2019-03-11 14:15] LABS: Triglycerides 408 mg/dL (30-200)
[2019-03-12 09:18] LABS: Vitamin D 25 Hydroxy 19.4 ng/mL (30.0-100.0)
[2019-03-12 19:02] LABS: Hemoglobin A1C 8.5 % (0.0-7.0)
== END ==
PROVIDERS: Visit Provider Physician Assistant
DX: E78.5 Hyperlipidemia, unspecified (principal); E03.9 Hypothyroidism, unspecified; E55.9 Vitamin D deficiency, unspecified; E11.9 Type 2 diabetes mellitus without complications; Z79.84 Long term (current) use of oral hypoglycemic drugs
CPT/HCPCS: 80053; 80061; 82652; 83036; 84436; 84443; 85025

== ENCOUNTER → 2019-05-17 16:48 | Outpatient (CLI) | payer MEDICARE, SELFPAY ==
[2019-05-17 17:58] LABS: Basophils # 0.1 K/mm3 (0-0.2); Basophils % 0.4 % (0.1-2.0); Eosinophils # 0.1 K/mm3 (0.0-0.4); Hematocrit 45.4 % (37.0-47.0); Hemoglobin 14.9 g/dL (12.2-16.2); Lymphocytes # 5.2 K/mm3 (0.7-4.5); Lymphocytes % 37.3 % (10-50); Mean Corpuscular HGB Conc 32.8 g/dL (31.8-35.4); Mean Corpuscular Hemoglobin 31.3 pg (27.0-31.2); Mean Corpuscular Volume 95.3 fl (81-99); Mean Platelet Volume 7.8 fl (7.4-10.4); Monocytes # 0.7 K/mm3 (0.1-1.0); Neutrophils # 7.8 K/mm3 (1.8-7.8); Neutrophils % 56.3 % (37.0-80.0); Platelet Count 324 K/mm3 (142-424); Red Blood Count 4.76 M/mm3 (4.20-5.40); Red Cell Distribution Width 13.5 % (11.5-17.5); White Blood Count 13.8 K/mm3 (4.8-10.8)
[2019-05-17 19:49] LABS: Alanine Aminotransferase 58 U/L (12-78); Albumin Level 4.2 gm/dL (3.4-5.0); Albumin/Globulin Ratio 1.2 (1.1-1.8); Alkaline Phosphatase 90 U/L (46-116); Amylase 69 U/L (25-115); Anion Gap 18.1 mEq/L (5-15); Aspartate Amino Transferase 66 U/L (15-37); Bilirubin,Total 0.5 mg/dL (0.2-1.0); Blood Urea Nitrogen 11 mg/dL (7-18); Calcium 9.1 mg/dL (8.5-10.1); Carbon Dioxide 23 mmol/L (21.0-32.0); Chloride 100 mmol/L (98-107); Chol/HDL Ratio 4.1 (1-3.5); Cholesterol 213 mg/dL (140-200); Creatinine,Serum 0.84 mg/dL (0.55-1.02); Estimated Glomerular Filt Rate 69 ml/min (>60); GFR (African American) 84 ML/MIN (>60); Globulin 3.6 gm/dl (1.3-3.2); Glucose 188 mg/dL (74-106); HDL Cholesterol 52 mg/dL (29-89); LDL Cholesterol 123 mg/dL (0-130); Lipase 217 u/L (73-393); Potassium 4.1 mmoL/L (3.5-5.1); Sodium 137 mmol/L (136-145); T4 (Thyroxine) 8.9 ug/dl (4.7-13.3); Thyroid Stimulating Hormone 1.26 uIU/ml (0.358-3.740); Total Protein,Serum 7.8 gm/dL (6.4-8.2); Triglycerides 190 mg/dL (30-200); VLDL Cholesterol 38 mg/dL (0-40)
[2019-05-18 17:00] LABS: Hemoglobin A1C 8.3 % (0.0-7.0)
[2019-05-20 17:00] LABS: Vitamin D 25 Hydroxy 42.5 ng/mL (30.0-100.0)
== END ==
PROVIDERS: Visit Provider Physician Assistant
DX: I10 Essential (primary) hypertension (principal); E11.69 Type 2 diabetes mellitus with other specified complication; E78.5 Hyperlipidemia, unspecified
CPT/HCPCS: 80053; 80061; 82150; 82652; 83036; 83690; 84436; 84443; 85025

== ENCOUNTER → 2019-09-16 13:31 | Outpatient (CLI) | payer MEDICARE, SELFPAY ==
[2019-09-16 13:36] LABS: Adenovirus F 40/41, stool Not Detected (NotDetected); Astrovirus Not Detected (NotDetected); Campylobacter Not Detected (NotDetected); Clostridium Difficile A/B, PCR Not Detected (NotDetected); Cryptosporidium Not Detected (NotDetected); Cyclospora Cayetanesis Not Detected (NotDetected); Entamoeba histolytica Not Detected (NotDetected); Enteroaggregative E coli Not Detected (NotDetected); Enteropathogenic E coli Not Detected (NotDetected); Enterotoxigenic E coli Not Detected (NotDetected); Giardia lamblia Not Detected (NotDetected); Norovirus Not Detected (NotDetected); Plesimonas Shigalloides, PCR Not Detected (NotDetected); Rotavirus A Not Detected (NotDetected); Salmonella, PCR Not Detected (NotDetected); Sapovirus Not Detected (NotDetected); Shiga-like toxin E coli Not Detected (NotDetected); Shigella Enterovasive E coli Not Detected (NotDetected); Vibrio Cholerae Not Detected (NotDetected); Vibrio, PCR Not Detected (NotDetected); Yersinia Entercolitica, PCR Not Detected (NotDetected)
== END ==
PROVIDERS: Visit Provider Physician Assistant
DX: R19.7 Diarrhea, unspecified (principal)
CPT/HCPCS: 87506

== ENCOUNTER → 2019-11-29 16:24 | Outpatient (CLI) | payer MEDICARE, SELFPAY ==
[2019-11-29 17:28] LABS: Basophils # 0.1 K/mm3 (0-0.2); Basophils % 0.6 % (0.1-2.0); Eosinophils # 0.1 K/mm3 (0.0-0.4); Eosinophils % 0.9 % (0.1-12.0); Hematocrit 44.6 % (37.0-47.0); Hemoglobin 15.3 g/dL (12.2-16.2); Lymphocytes # 3.1 K/mm3 (0.7-4.5); Lymphocytes % 33.9 % (10-50); Mean Corpuscular HGB Conc 34.3 g/dL (31.8-35.4); Mean Corpuscular Volume 93.3 fl (81-99); Mean Platelet Volume 8.4 fl (7.4-10.4); Monocytes # 0.4 K/mm3 (0.1-1.0); Monocytes % 4.5 % (1.7-9.3); Neutrophils # 5.4 K/mm3 (1.8-7.8); Neutrophils % 60.1 % (37.0-80.0); Platelet Count 305 K/mm3 (142-424); Red Blood Count 4.78 M/mm3 (4.20-5.40); Red Cell Distribution Width 13.1 % (11.5-17.5)
[2019-11-29 17:49] LABS: Creatinine,Urine Random 14 mg/dL (Not Estab.); Microalbumin < 6.000 mg/L (0-16.7)
[2019-11-29 18:07] LABS: Alanine Aminotransferase 71 U/L (12-78); Albumin Level 4.8 g/dl (3.5-5.0); Albumin/Globulin Ratio 1.4 (1.1-1.8); Alkaline Phosphatase 99 U/L (38-126); Anion Gap 20.5 mEq/L (5-15); Aspartate Amino Transferase 49 U/L (14-36); Bilirubin,Total 0.5 mg/dl (0.2-1.3); Blood Urea Nitrogen 10 mg/dl (7-17); Calcium 10.6 mg/dl (8.4-10.2); Carbon Dioxide 23 mmol/L (22.0-30.0); Chloride 96 mmol/L (98-107); Chol/HDL Ratio 2.9 (1-3.5); Cholesterol 226 mg/dl (140-200); Estimated Glomerular Filt Rate 86 ml/min (>60); GFR (African American) 104 ML/MIN (>60); Globulin 3.4 g/dL (1.3-3.2); Glucose 363 mg/dl (74-100); HDL Cholesterol 79 mg/dl (40-60); Potassium 4.5 mmoL/L (3.5-5.1); Sodium 135 mmol/L (136-145); Total Protein,Serum 8.2 g/dl (6.3-8.2); Triglycerides 210 mg/dl (30-150); VLDL Cholesterol 42 mg/dL (0-40)
[2019-11-29 18:08] LABS: Hemoglobin A1C 6.9 % (4.0-6.0)
[2019-11-29 18:19] LABS: Direct LDL Cholesterol 122.27 mg/dL (100-129)
[2019-11-29 18:22] LABS: T4 (Thyroxine) 8.8 ug/dl (5.53-11.0)
[2019-11-29 18:23] LABS: 25-OH Vitamin D, Total 54.1 ng/mL (30-100)
[2019-11-29 18:36] LABS: Thyroid Stimulating Hormone 2.35 uIU/mL (0.465-4.68)
== END ==
PROVIDERS: Visit Provider Physician Assistant
DX: E11.69 Type 2 diabetes mellitus with other specified complication (principal); E55.9 Vitamin D deficiency, unspecified; E78.5 Hyperlipidemia, unspecified; I10 Essential (primary) hypertension; Z79.4 Long term (current) use of insulin
CPT/HCPCS: 80053; 80061; 82043; 82306; 82570; 83036; 84436; 84443; 85025

== ENCOUNTER → 2019-12-14 07:44 | Outpatient (CLI) | payer MEDICARE, SELFPAY ==
--- NOTE | 2019-12-14 07:52 | MR_ITS ---
PROCEDURE: MR LUMBAR SPINE WO CON CLINICAL INDICATION: Low back pain Pt. C/o lbp pain with left leg numbness and tingling. Pt denies trauma or injury. COMPARISON: MR LEAJW/ORT MRI-LOW EXT ANY JOINT W/O-RT from 10/04/[address] abdomen pelvis w con from 03/06/2018 TECHNIQUE: Standard multiplanar multiecho sequences are performed without contrast. 3-D MIP and myelographic images are also rendered and reviewed FINDINGS: There is normal alignment. The spinal cord ends at the L1 level. L1-L2: Unremarkable. L2-L3: There is a small left paracentral disc protrusion which is causing mild left lateral recess and foraminal narrowing and abuts the anterior aspect of the left L3 nerve root. L3-L4: Unremarkable. L4-5: Unremarkable. L5-S1: Unremarkable IMPRESSION: There is a small left paracentral disc protrusion at L2-L3 causing mild left lateral recess and foraminal narrowing and abutting the anterior aspect of the left L3 nerve root. Otherwise negative MRI the lumbar spine Dictated by: Nitin Brian MD 12/15/2019 12:05 Nitin Brian MD in [place] 12/15/2019 12:05
== END ==
PROVIDERS: PCP Physician Assistant; Visit Provider Physician Assistant
DX: M54.5 Low back pain (principal)
CPT/HCPCS: 72148; 76376

== ENCOUNTER → 2020-03-23 15:30 | Outpatient (CLI) | payer MEDICARE, SELFPAY | PROVIDERS: Visit Provider Physician Assistant | DX: R30.9 Painful micturition, unspecified (principal) | CPT/HCPCS: 87086 ==

== ENCOUNTER 2020-08-15 11:06 | Emergency (ER) | payer MEDICARE, SELFPAY ==
[2020-08-15 11:07] VITALS: BP 174/74; PULSE 88; RESP 16; TEMP 37.1; O2SAT 98; BMI 35.3
--- NOTE | 2020-08-15 11:21 | HMH.EDGENADL ---
ED Disposition Clinical Impression: Muscle strain Disposition: Home, Self-Care Condition on Discharge: Good Additional Instructions: Continue your current pain medication and muscle relaxer and ibuprofen and heating pad. Follow-up with your primary care provider within 1 to 2 days. Referrals: Wendy Luz PA [Primary Care Provider] - - Critical Care Critical Care Time: No Attestation: On , the high probability of a clinically significant, sudden or life threatening deterioration of the following system(s) required my full and direct attention, intervention and personal management. The time I documented below is in addition to time spent performing reported procedures but includes the following listed in this critical care notation. Medical Decision Making - Radhames Inquiry Pt receiving controlled substance: No Vital Signs: 08/15/20 11:07 08/15/20 11:24 Temperature 98.7 F Temperature Source Oral Pulse Rate 89 Pulse Rate [Radial] 88 Respiratory Rate 16 Blood Pressure 171/74 H Blood Pressure [Right Arm] 174/74 H Blood Pressure Mean [Right Arm] 107 Blood Pressure Source Automatic Cuff Blood Pressure Position Sitting Blood Pressure Position [Right Arm] Sitting 02 Sat by Pulse Oximetry 98 96 Oxygen Delivery Method Room Air Room Air Orders (Tests/Meds): ED MEDICATIONS Discontinued Medications Generic Name Dose Route Start Last Admin Trade Name Freq PRN Reason Stop Dose Admin Ketorolac Tromethamine 60 mg 08/15/20 11:32 08/15/20 11:36 Ketorolac 60mg/2ml Vial IM 08/15/20 11:33 60 mg ONCE ONE Administration Medical Decision Narrative: I do not feel x-rays/imaging are indicated by mechanism or by symptoms and exam findings. Findings are consistent with a muscular injury. Do not suspect hip joint pathology, visceral etiology, nor spinal pathology. General Adult HPI - General Chief complaint: PAIN Stated complaint: Right hip pain Time Seen by Provider: 08/15/20 11:22 Mode of Arrival: Ambulatory Limitations: No Limitations Description of Symptoms (Recalled from ER Triage Doc. 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 pt states pain progressively getting worse. - History of Present Illness HPI narrative: States I pulled some muscles or something . 4 days ago on Friday she bent over to pick something up and everything went haywire . She says that she had a pain in her right hip which she locates is being at the area of her lateral right iliac crest. She does not hurt down in the hip joint. She is not hurting in the back or sacroiliac joint area. She has increased pain when she walks and when she moves. She has taken ibuprofen without improvement. She also states that she is on hydrocodone 7.5 mg and Zanaflex. She has also used heat. - Related Data Home Medications Medication Instructions Recorded Confirmed Hydrocodone/Acetaminophen 1 tab PO QID 06/10/17 03/23/20 [Hydrocodone-Acetamin 7.5-325] gabapentin 800 mg tablet 800 mg PO QID 06/10/17 08/10/20 aspirin 81 mg tablet,delayed 81 mg PO DAILY 10/07/19 08/10/20 release Previous Rx's Medication Instructions Recorded cholecalciferol (vitamin D3) 25 1,000 unit PO DAILY 90 Days #90 cap 05/16/18 mcg (1,000 unit) capsule tizanidine 4 mg tablet 4 mg PO Q8H PRN #90 tab 03/11/19 ergocalciferol (vitamin D2) 1,250 50,000 unit PO QWEEK 90 Days #14 03/17/19 mcg (50,000 unit) capsule cap sitagliptin 100 mg tablet 100 mg PO DAILY #90 tab 05/17/19 insulin glargine 100 unit/mL (3 10 unit SQ DAILY #15 ml 05/26/19 mL) subcutaneous pen pen needle, diabetic 31 gauge x See Rx Instructions .ROUTE 05/26/19/16 .MEDSUPPLY #50 each glipizide 10 mg tablet 10 mg PO BID #180 tab 10/07/19 fluticasone propionate 50 1 spray INTRANASAL DAILY #18.2 ml 11/30/19 mcg/actuation nasal spray,suspension triamcinolone acetonide 55 mcg 1 s
[2020-08-15 11:24] VITALS: BP 171/74; PULSE 89; O2SAT 96
[2020-08-15 11:56] VITALS: BP 153/85; PULSE 78; RESP 16; TEMP 36.6; O2SAT 98
== END 2020-08-15 11:58 | disposition home or self-care (01) ==
PROVIDERS: Emergency Provider Emergency Medicine; PCP Physician Assistant
DX: S76.011A Strain of muscle, fascia and tendon of right hip, initial encounter (principal); X50.0XXA Overexertion from strenuous movement or load, initial encounter; Y92.019 Unspecified place in single-family (private) house as the place of occurrence of the external cause; K21.9 Gastro-esophageal reflux disease without esophagitis; E78.5 Hyperlipidemia, unspecified; I10 Essential (primary) hypertension; E03.9 Hypothyroidism, unspecified; F33.1 Major depressive disorder, recurrent, moderate; Z79.899 Other long term (current) drug therapy
CPT/HCPCS: 96372; 99281

== ENCOUNTER → 2020-10-05 14:15 | Outpatient (CLI) | payer MEDICARE, SELFPAY ==
[2020-10-05 14:28] LABS: Basophils # 0.1 K/mm3 (0-0.2); Basophils % 0.7 % (0.1-2.0); Eosinophils # 0.1 K/mm3 (0.0-0.4); Eosinophils % 1.4 % (0.1-12.0); Hematocrit 44.3 % (37.0-47.0); Hemoglobin 14.7 g/dL (12.2-16.2); Lymphocytes # 2.7 K/mm3 (0.7-4.5); Lymphocytes % 32.5 % (10-50); Mean Corpuscular HGB Conc 33.2 g/dL (31.8-35.4); Mean Corpuscular Volume 90.3 fl (81-99); Mean Platelet Volume 7.4 fl (7.4-10.4); Monocytes # 0.4 K/mm3 (0.1-1.0); Monocytes % 5.3 % (1.7-9.3); Neutrophils % 60.1 % (37.0-80.0); Platelet Count 253 K/mm3 (142-424); Red Cell Distribution Width 13.6 % (11.5-17.5); White Blood Count 8.3 K/mm3 (4.8-10.8)
[2020-10-05 14:38] LABS: Hemoglobin A1C 8.9 % (4.0-6.0)
[2020-10-05 14:43] LABS: Alanine Aminotransferase 37 U/L (12-78); Albumin Level 4.5 g/dl (3.5-5.0); Albumin/Globulin Ratio 1.5 (1.1-1.8); Alkaline Phosphatase 76 U/L (38-126); Anion Gap 16.5 mEq/L (5-15); Aspartate Amino Transferase 42 U/L (14-36); Bilirubin,Total 0.8 mg/dl (0.2-1.3); Blood Urea Nitrogen 8 mg/dl (7-17); Calcium 9.8 mg/dl (8.4-10.2); Carbon Dioxide 22 mmol/L (22.0-30.0); Chloride 105 mmol/L (98-107); Chol/HDL Ratio 3.9 (1-3.5); Cholesterol 216 mg/dl (140-200); Estimated Glomerular Filt Rate 85 ml/min (>60); GFR (African American) 103 ML/MIN (>60); Globulin 3.1 g/dL (1.3-3.2); Glucose 233 mg/dl (74-100); HDL Cholesterol 56 mg/dl (40-60); Potassium 4.5 mmoL/L (3.5-5.1); Sodium 139 mmol/L (136-145); Total Protein,Serum 7.6 g/dl (6.3-8.2); Triglycerides 317 mg/dl (30-150); VLDL Cholesterol 63 mg/dL (0-40)
[2020-10-05 14:55] LABS: Direct LDL Cholesterol 109.88 mg/dL (100-129)
[2020-10-05 15:00] LABS: 25-OH Vitamin D, Total 39.6 ng/mL (30-100); Free T4 (Free Thyroxine) 1.21 ng/dl (0.78-2.19)
[2020-10-05 15:15] LABS: Thyroid Stimulating Hormone 2.92 uIU/mL (0.465-4.68)
== END ==
PROVIDERS: Visit Provider Physician Assistant
DX: E03.9 Hypothyroidism, unspecified (principal); E55.9 Vitamin D deficiency, unspecified; E78.5 Hyperlipidemia, unspecified; R53.83 Other fatigue; I10 Essential (primary) hypertension; E11.69 Type 2 diabetes mellitus with other specified complication; Z79.4 Long term (current) use of insulin
CPT/HCPCS: 80053; 80061; 82043; 82306; 83036; 84439; 84443; 85025

== ENCOUNTER → 2020-10-19 13:21 | Outpatient (CLI) | payer MEDICARE, SELFPAY | PROVIDERS: PCP Physician Assistant; Visit Provider Physician Assistant | DX: G47.33 Obstructive sleep apnea (adult) (pediatric) (principal); G47.19 Other hypersomnia | CPT/HCPCS: G0399 ==

== ENCOUNTER 2021-01-19 14:53 | Emergency (ER) | payer MEDICARE, SELFPAY ==
[2021-01-19 15:36] VITALS: BMI 32.8
--- NOTE | 2021-01-19 15:37 | CT_ITS ---
PROCEDURE INFORMATION: Exam: CT Abdomen And Pelvis Without Contrast Exam date and time: 01/19/2021 3:37 PM Age: 60 years old Clinical indication: Abdominal pain; Additional info: Lt flank and lt lower abd pain TECHNIQUE: Imaging protocol: Computed tomography of the abdomen and pelvis without contrast. Radiation optimization: All CT scans at this facility use at least one of these dose optimization techniques: automated exposure control; mA and/or kV adjustment per patient size (includes targeted exams where dose is matched to clinical indication); or iterative reconstruction. COMPARISON: ABDPELW CT abdomen pelvis w con 03/06/2018 4:54 PM FINDINGS: Lungs: No acute findings in the visualized lower lungs. Minimal linear subsegmental atelectasis or scarring. Liver: Hepatomegaly. Fatty liver. No discrete mass seen on this nonenhanced study. Gallbladder and bile ducts: Cholecystectomy clips. Biliary tree is within normal limits. No calcified stones. Pancreas: Fatty atrophic changes in the pancreas. No ductal dilatation. Spleen: Mild splenomegaly approximate 13 cm. Calcified granulomas. Adrenal glands: The adrenal glands are normal. Kidneys and ureters: No hydronephrosis, hydroureter, or obstructing calcified stones. Minimal nonspecific left perinephric soft tissue stranding. Stomach and bowel: Mild diverticulosis coli, no CT findings of acute diverticulitis.There is no evidence of intestinal perforation or obstruction. The stomach is normal. Appendix: Post appendectomy. Intraperitoneal space: There is no significant free intraperitoneal fluid. There is no free intraperitoneal air. Vasculature: There is no aortic aneurysm. The vasculature demonstrates scattered mild atherosclerotic calcification. No portal venous gas. Lymph nodes: Calcified right mediastinal and hilar lymph nodes noted in the chest. No significantly enlarged lymph nodes by short axis criteria. Urinary bladder: The bladder is normal. Reproductive: Post hysterectomy. Unremarkable as visualized. Bones/joints: Minimal spinal degenerative changes. No acute fracture or high-grade listhesis, as visualized. Soft tissues: There are no soft tissue masses or fluid collections. IMPRESSION: 1. No acute findings. 2. No hydronephrosis, hydroureter, or calcified obstructing stones to explain left flank pain. 3. Mild diverticulosis coli, no CT findings of acute diverticulitis. 4. Hepatosplenomegaly. Fatty liver. 5. Additional nonemergency and chronic findings as above.
[2021-01-19 15:40] VITALS: BP 140/67; PULSE 80; RESP 16; TEMP 36.8; O2SAT 97; BMI 32.8
[2021-01-19 15:53] LABS: Microscopic, Urine URINE MICROSCOPIC (MICROSCOPIC)
[2021-01-19 15:56] LABS: Appearance,Urine CLEAR (Clear); Bilirubin,Urine Negative (Negative); Blood, Urine Negative (Negative); Color,Urine YELLOW (Yellow); Glucose,Urine (UA) 3+ (Negative); Ketones,Urine Negative (Negative); Leukocyte Esterase,Urine Negative (Negative); Nitrate,Urine Negative (Negative); PH,Urine 5.5 (5.0-8.5); Protein,Urine Negative (Negative); Specific Gravity, Urine <= 1.005 (1.005-1.030); Urobilinogen,Urine 0.2 EU/dl (0.2)
[2021-01-19 16:00] VITALS: BP 129/76; PULSE 79; RESP 15; O2SAT 97
[2021-01-19 16:04] LABS: Basophils # 0.1 K/mm3 (0-0.2); Basophils % 0.7 % (0.1-2.0); Eosinophils # 0.1 K/mm3 (0.0-0.4); Eosinophils % 0.9 % (0.1-12.0); Hematocrit 42.5 % (37.0-47.0); Hemoglobin 13.5 g/dL (12.2-16.2); Lymphocytes # 1.7 K/mm3 (0.7-4.5); Lymphocytes % 22.8 % (10-50); Mean Corpuscular HGB Conc 31.9 g/dL (31.8-35.4); Mean Corpuscular Hemoglobin 32.3 pg (27.0-31.2); Mean Corpuscular Volume 101.3 fl (81-99); Mean Platelet Volume 7.1 fl (7.4-10.4); Monocytes # 0.3 K/mm3 (0.1-1.0); Monocytes % 4.5 % (1.7-9.3); Neutrophils # 5.3 K/mm3 (1.8-7.8); Neutrophils % 71.2 % (37.0-80.0); Platelet Count 195 K/mm3 (142-424); Red Blood Count 4.19 M/mm3 (4.20-5.40); Red Cell Distribution Width 12.4 % (11.5-17.5); White Blood Count 7.4 K/mm3 (4.8-10.8)
[2021-01-19 16:08] LABS: Alanine Aminotransferase 50 U/L (12-78); Albumin/Globulin Ratio 1.3 (1.1-1.8); Alkaline Phosphatase 69 U/L (38-126); Aspartate Amino Transferase 50 U/L (14-36); Bilirubin,Total 0.4 mg/dl (0.2-1.3); Blood Urea Nitrogen 14 mg/dl (7-17); Calcium 9.1 mg/dl (8.4-10.2); Carbon Dioxide 27 mmol/L (22.0-30.0); Chloride 99 mmol/L (98-107); Creatinine Clearance Estimated 113 mL/min (50-200); Estimated Glomerular Filt Rate 85 ml/min (>60); GFR (African American) 103 ML/MIN (>60); Globulin 3.2 g/dL (1.3-3.2); Sodium 133 mmol/L (136-145); Total Protein,Serum 7.2 g/dl (6.3-8.2)
[2021-01-19 16:09] LABS: Bacteria,Urine Trace /lpf; WBC,Urine Occasional #/hpf (0-3)
[2021-01-19 16:16] LABS: Glucose 643 mg/dl (74-100)
--- NOTE | 2021-01-19 16:16 | PC.NURSE ---
critical glucose reported to ER at this time
--- NOTE | 2021-01-19 16:16 | PC.NURSE ---
pt glucose was 643 MD notified
--- NOTE | 2021-01-19 16:18 | HMH.EDUROGF ---
ED Disposition Clinical Impression: Acute flank pain Diabetes mellitus Qualifiers: Diabetes mellitus type: type 2 Diabetes mellitus care home insulin use: unspecified care home insulin use status Diabetes mellitus complication status: with other specified complication Qualified Code(s): E11.69 - Type 2 diabetes mellitus with other specified complication Disposition: Home, Self-Care Condition on Discharge: Good Instructions: DI for Flank Pain Additional Instructions: see pcp for follow up Referrals: Wendy Luz PA [Primary Care Provider] - - Critical Care Critical Care Time: No Attestation: On 01/19/21, the high probability of a clinically significant, sudden or life threatening deterioration of the following system(s) required my full and direct attention, intervention and personal management. The time I documented below is in addition to time spent performing reported procedures but includes the following listed in this critical care notation. Medical Decision Making - Medical Records Medical records reviewed: Yes: I reviewed the patient's medical records. - Radhames Inquiry Pt receiving controlled substance: No Vital Signs: 01/19/21 15:40 01/19/21 16:00 01/19/21 17:01 Temperature 98.3 F Temperature Source Oral Pulse Rate 79 81 Pulse Rate [Left Radial] 80 Respiratory Rate 16 15 16 Blood Pressure 129/76 143/69 H Blood Pressure [Right Arm] 140/67 Blood Pressure Mean 93 84 Blood Pressure Mean [Right Arm] 91 Blood Pressure Source [Right Arm] Automatic Cuff Blood Pressure Position [Right Arm] Sitting 02 Sat by Pulse Oximetry 97 97 95 Oxygen Delivery Method Room Air - Lab Data Lab results reviewed: Yes: I reviewed the patient's lab results. Lab Results 01/19/21 15:30: Urine Color Yellow, Urine Appearance Clear, Urine pH 5.5, Ur Specific [place] <= 1.005, Urine Protein Negative, Urine Glucose (UA) 3+, Urine Ketones Negative, Urine Blood Negative, Urine Nitrate Negative, Urine Bilirubin Negative, Urine Urobilinogen 0.2, Ur Leukocyte Esterase Negative, Urine RBC None, Urine WBC Occasional, Ur Squamous Epith Cells 3-5, Urine Bacteria Trace 01/19/21 15:50: WBC 7.4, RBC 4.19 L, Hgb 13.5, Hct 42.5, MCV 101.3 H, MCH 32.3 H, MCHC 31.9, RDW 12.4, Plt Count 195, MPV 7.1 L, Neut % (Auto) 71.2, Lymph % (Auto) 22.8, [place] % (Auto) 4.5, Eos % (Auto) 0.9, Baso % (Auto) 0.7, Neut # (Auto) 5.3, Lymph # (Auto) 1.7, [place] # (Auto) 0.3, Eos # (Auto) 0.1, Baso # (Auto) 0.1 01/19/21 15:50: Sodium 133 L, Potassium 5.0, Chloride 99, Carbon Dioxide 27, Anion Gap 12.0, BUN 14, Creatinine 0.70, Estimated Creat Clear 113, Estimated GFR 85, Est GFR ( Amer) 103, Glucose 643 H*, Calcium 9.1, Total Bilirubin 0.4, AST 50 H, ALT 50, Alkaline Phosphatase 69, Total Protein 7.2, Albumin 4.0, Globulin 3.2, Albumin/Globulin Ratio 1.3 Result diagrams: 01/19/21 15:50 01/19/21 15:50 Orders (Tests/Meds): ED MEDICATIONS Discontinued Medications Generic Name Dose Route Start Last Admin Trade Name Freq PRN Reason Stop Dose Admin Sodium Chloride 1,000 mls @ 999 mls/hr 01/19/21 15:38 01/19/21 17:01 Sod Chlor 0.9% 1000ml Bag IV 01/19/21 16:38 Not Given .Q1H1M ONE Insulin Human Lispro 15 unit 01/19/21 16:22 01/19/21 16:54 Humalog 100 Units/Ml 3ml Vial (Ssi) SQ 01/19/21 16:23 15 unit ONCE ONE Administration Protocol Ketorolac Tromethamine 15 mg 01/19/21 15:37 01/19/21 17:01 Ketorolac 30mg/Ml Vial IV 01/19/21 15:38 Not Given ONCE ONE - CT Data CT Scan: Abdomen, Pelvis Time Received: 18:[address] Reviewed: Yes: I have viewed the radiologist's interpretation Preliminary Findings: Normal/NAD Medical Decision Narrative: has elevated glu but otherwise ok labs and stable exam - ask pt to see pcp friday for follow up Female Urogenital HPI - General Chief complaint: Urogenital-Female Stated complaint: lower abdominal pain, lower back pain Time Seen by Provider: 10
[2021-01-19 17:01] VITALS: BP 143/69; PULSE 81; RESP 16; O2SAT 95
[2021-01-19 18:49] VITALS: BP 142/74; PULSE 82; RESP 18; TEMP 36.6; O2SAT 98
== END 2021-01-19 18:51 | disposition home or self-care (01) ==
PROVIDERS: Emergency Provider Emergency Medicine; PCP Physician Assistant
DX: R10.84 Generalized abdominal pain (principal); E11.65 Type 2 diabetes mellitus with hyperglycemia; E78.5 Hyperlipidemia, unspecified; K21.9 Gastro-esophageal reflux disease without esophagitis; I10 Essential (primary) hypertension; F33.1 Major depressive disorder, recurrent, moderate; Z79.899 Other long term (current) drug therapy
CPT/HCPCS: 74176; 80053; 81001; 85025; 96365; 99283

== ENCOUNTER 2021-05-11 11:16 | Emergency (ER) | payer MEDICARE, SELFPAY ==
[2021-05-11 12:15] VITALS: BP 186/95; PULSE 97; RESP 20; TEMP 36.8; O2SAT 96; BMI 35.0
--- NOTE | 2021-05-11 12:49 | HMH.EDUTC ---
[facility] [place] Clinical Impression: Sinusitis Qualifiers: Sinusitis location: unspecified location Chronicity: unspecified Qualified Code(s): J32.9 - Chronic sinusitis, unspecified Disposition: Home, Self-Care Condition on Discharge: Good Instructions: Sinusitis, DI for Sinusitis Additional Instructions: *Monitor Temp, Over the counter Motrin or Tylenol as directed/as needed Tylenol every 4 hours and Motrin every 6 hours (as long as your family doctor has told you that you can take it) for fever or pain. and straight to ER if unable to lower temp less than 101.0 after medication given *Warm salt water gargles may help to soothe the throat *Throat Lozenges *Warm fluids like tea with honey may help to soothe the throat *Sleep elevated *Humidifier/Vaporizer *Flonase 2 sprays in each nostril daily but be aware that it may take 2-3 days before you notice improvement Return if needed Follow up IMMEDIATELY for new or worsening symptoms or no Noticeable improvement over the next 48-72 hours. 911 for difficulty breathing or swallowing Prescriptions: Benzonatate [Benzonatate 100mg cap] 100 mg PO Q8HP PRN #15 cap PRN Reason: Cough Transmission Status: Pending to [facility] Fluticasone Propionate [Flonase 50mcg nasal spray 16gm] 1 spr NS DAILY #1 ml Transmission Status: Pending to [facility] Azithromycin [Z-Dung 250mg Tab] 250 mg PO DIRECTED #6 tab Transmission Status: Pending to [facility] Referrals: Wendy Luz PA [Primary Care Provider] - As needed Time of Disposition: 13:02 Medical Decision Making - Radhames Inquiry Pt receiving controlled substance: No Radhames was queried for this patient: No Vital Signs: 05/11/21 12:15 Temperature 98.3 F Temperature Source Oral Pulse Rate [Right Brachial] 97 H Respiratory Rate 20 Blood Pressure [Right Arm] 186/95 H Blood Pressure Mean [Right Arm] 125 Blood Pressure Source [Right Arm] Automatic Cuff Blood Pressure Position [Right Arm] Sitting 02 Sat by Pulse Oximetry 96 Oxygen Delivery Method Room Air Medical Decision Narrative: Recommended augmentin and patient declined state that it gives her diarrhea asking for her[place] [facility] [place] - General Stated complaint: sinus congestion and chest congestion Time Seen by Provider: 05/11/21 12:49 Mode of Arrival: Ambulatory Source of Information: Patient Limitations: No Limitations Description of Symptoms (Recalled from Triage Doc. by RN): PATIENT C/O CONGESTION, COUGH, HEADACHE, AND EAR ACHE X 3 DAYS HEENT Symptoms (Recalled from RN notes): Yes Resp Symptoms (Recalled from RN notes): Yes Skin Symptoms (Recalled from RN notes): No MS Symptoms (Recalled from RN notes): No Functional Status (Recalled from RN notes): WNL - History of Present Illness Provider Complaint: Patient state that she has been having sinus pain and pressure with drainage in the back of her throat and feels like it is trying to move into her chest area State that she wanted to come in and get medication before it got too bad - Related Data Home Medications Medication Instructions Recorded Confirmed Hydrocodone/Acetaminophen 1 tab PO QID 06/10/17 10/05/20 [Hydrocodone-Acetamin 7.5-325] gabapentin 800 mg tablet 800 mg PO QID 06/10/17 10/05/20 Previous Rx's Medication Instructions Recorded tizanidine 4 mg tablet 4 mg PO Q8H PRN #90 tab 03/11/19 pen needle, diabetic 31 gauge x See Rx Instructions .ROUTE 05/26/1909/03 .MEDSUPPLY #50 each triamcinolone acetonide 55 mcg 1 spray INTRANASAL DAILY #16.9 ml 11/30/19 nasal spray aerosol lancets 30 gauge See Rx Instructions .ROUTE 04/04/20 .MEDSUPPLY #100 each atorvastatin 80 mg tablet 80 mg PO DAILY #90 tab 08/11/20 citalopram 40 mg tablet 40 mg PO DAILY #90 tab 08/11/20 amoxicillin 875 mg tablet 875 mg PO BID #20 tab 10/05/20 aspirin 81 mg tablet,delayed 81 mg PO DAILY #90 tab 10/05/20 release carvedilol 6.25 mg tablet 6.25 mg PO Q12H #180 tab
[2021-05-11 13:04] VITALS: BP 186/95; PULSE 97; RESP 20; TEMP 36.8; O2SAT 96
== END 2021-05-11 13:14 | disposition home or self-care (01) ==
PROVIDERS: Emergency Provider Nurse Practitioner; PCP Physician Assistant
DX: J32.9 Chronic sinusitis, unspecified (principal); I10 Essential (primary) hypertension; E78.5 Hyperlipidemia, unspecified; K21.9 Gastro-esophageal reflux disease without esophagitis; E03.9 Hypothyroidism, unspecified; Z79.899 Other long term (current) drug therapy
CPT/HCPCS: G0463; 99202

== ENCOUNTER 2021-06-21 11:01 | Emergency (ER) | payer MEDICARE, SELFPAY ==
[2021-06-21 11:03] VITALS: BP 131/84; PULSE 80; RESP 16; TEMP 36.9; O2SAT 97; BMI 34.3
--- NOTE | 2021-06-21 11:33 | HMH.EDGENADL ---
ED Disposition Clinical Impression: COVID-19 Sinusitis Qualifiers: Sinusitis location: frontal Chronicity: acute Recurrence: non-recurrent Qualified Code(s): J01.10 - Acute frontal sinusitis, unspecified Disposition: Home, Self-Care Condition on Discharge: Good Instructions: DI for Sinusitis Prescriptions: methylPREDNISolone [Medrol 4mg tab] 4 mg PO DIRECTED #21 tab Transmission Status: Pending to [facility] Azithromycin [Zithromax 250mg tab] 250 mg PO DIRECTED #6 tab Transmission Status: Pending to [facility] Referrals: Wendy Luz PA [Primary Care Provider] - - Critical Care Critical Care Time: No Attestation: On 06/21/21, the high probability of a clinically significant, sudden or life threatening deterioration of the following system(s) required my full and direct attention, intervention and personal management. The time I documented below is in addition to time spent performing reported procedures but includes the following listed in this critical care notation. Medical Decision Making - Medical Records Medical records reviewed: Yes: I reviewed the patient's medical records. - Radhames Inquiry Pt receiving controlled substance: No Vital Signs: 06/21/21 11:03 06/21/21 11:41 Temperature 98.5 F Temperature Source Oral Pulse Rate 62 Pulse Rate [Right Radial] 80 Respiratory Rate 16 18 Blood Pressure 136/89 Blood Pressure [Right Arm] 131/84 Blood Pressure Mean 107 Blood Pressure Mean [Right Arm] 99 Blood Pressure Source [Right Arm] Automatic Cuff Blood Pressure Position [Right Arm] Sitting 02 Sat by Pulse Oximetry 97 97 Oxygen Delivery Method Room Air Room Air - Lab Data Lab Results 06/21/21 11:45: SARS-CoV-2 (PCR) Detected A, Influenza A Untype (PCR) Not detected, Influenza Type B (PCR) Not detected Orders (Tests/Meds): ED MEDICATIONS Discontinued Medications Generic Name Dose Route Start Last Admin Trade Name Freq PRN Reason Stop Dose Admin Acetaminophen 500 mg 06/21/21 11:18 06/21/21 11:30 Acetaminophen 500mg Tab PO 06/21/21 11:19 500 mg ONCE ONE Administration Dexamethasone 10 mg 06/21/21 11:18 06/21/21 11:30 Dexamethasone 4mg Tablet PO 06/21/21 11:19 10 mg ONCE ONE Administration Diphenhydramine HCl 25 mg 06/21/21 11:18 06/21/21 11:30 Diphenhydramine 25mg Capsule PO 06/21/21 11:19 25 mg ONCE ONE Administration - Reevaluation(s) Time: 14:26 Reevaluation #1: On reevaluation, patient is feeling better. Patient was positive for Covid. She has no evidence of respiratory distress. No desaturations. Patient be placed on a short course of steroid therapy. She is to follow-up with PCP in 48 hours. Given strict return precautions. Verbalized understanding. Medical Decision Narrative: 61-year-old female presenting with some nasal congestion and pressure. Findings are consistent with acute sinusitis. Patient nontoxic-appearing. Swab obtained. General Adult HPI - General Chief complaint: Upper Respiratory Infection Stated complaint: chills, soa, cough, runny nose/congestion Time Seen by Provider: 06/21/21 11:10 Mode of Arrival: Ambulatory Limitations: No Limitations Description of Symptoms (Recalled from ER Triage Doc. by RN): Pt c/o sinus pressure x4 days. Advises of productive cough. - History of Present Illness HPI narrative: 61-year-old female presented to the emergency department with some nasal congestion and sinus pressure. Patient has had this for the last 4 days. She is mainly concerned because her had Covid and she thinks she may have it. Patient is vaccinated. States that she has had some dark yellow discharge from the nose bilaterally. Having some pressure in the frontal regions. She denies any headache or change in vision. No focal weakness. No neck pain. Not having any difficulties breathing. Has had occasional cough. Nonproductive in nature.
[2021-06-21 11:41] VITALS: BP 136/89; PULSE 62; RESP 18; O2SAT 97
[2021-06-21 11:50] LABS: Influenza A, PCR Not Detected (NotDetected); Influenza B, PCR Not Detected (NotDetected)
[2021-06-21 13:16] LABS: Coronavirus 19, PCR Detected (NotDetected)
[2021-06-21 14:31] VITALS: BP 134/81; PULSE 74; RESP 16; TEMP 36.9; O2SAT 98
== END 2021-06-21 14:32 | disposition home or self-care (01) ==
PROVIDERS: Emergency Provider Emergency Medicine; PCP Physician Assistant
DX: U07.1 COVID-19 (principal); J01.10 Acute frontal sinusitis, unspecified; J06.9 Acute upper respiratory infection, unspecified; I10 Essential (primary) hypertension; K21.9 Gastro-esophageal reflux disease without esophagitis; E78.5 Hyperlipidemia, unspecified; E11.9 Type 2 diabetes mellitus without complications; F32.A Depression, unspecified; Z86.16 Personal history of COVID-19; Z79.4 Long term (current) use of insulin; Z79.1 Long term (current) use of non-steroidal anti-inflammatories (NSAID); Z79.51 Long term (current) use of inhaled steroids; Z79.82 Long term (current) use of aspirin; Z79.84 Long term (current) use of oral hypoglycemic drugs; Z79.899 Other long term (current) drug therapy; Z88.1 Allergy status to other antibiotic agents; Z88.3 Allergy status to other anti-infective agents; Z88.5 Allergy status to narcotic agent; Z88.8 Allergy status to other drugs, medicaments and biological substances; Z82.49 Family history of ischemic heart disease and other diseases of the circulatory system; Z80.9 Family history of malignant neoplasm, unspecified
CPT/HCPCS: 99283; C9803; U0003; U0005

== ENCOUNTER → 2021-07-11 18:55 | Outpatient (CLI) | payer MEDICARE, SELFPAY ==
[2021-07-11 13:34] LABS: Basophils # 0.1 K/mm3 (0-0.2); Basophils % 1.5 % (0.1-2.0); Eosinophils # 0.1 K/mm3 (0.0-0.4); Eosinophils % 1.1 % (0.1-12.0); Hematocrit 39.9 % (37.0-47.0); Hemoglobin 13.1 g/dL (12.2-16.2); Lymphocytes # 2.5 K/mm3 (0.7-4.5); Lymphocytes % 34.8 % (10-50); Mean Corpuscular Hemoglobin 31.8 pg (27.0-31.2); Mean Corpuscular Volume 96.5 fl (81-99); Mean Platelet Volume 8.6 fl (7.4-10.4); Monocytes # 0.4 K/mm3 (0.1-1.0); Monocytes % 5.6 % (1.7-9.3); Neutrophils # 4.1 K/mm3 (1.8-7.8); Platelet Count 221 K/mm3 (142-424); Red Blood Count 4.13 M/mm3 (4.20-5.40); Red Cell Distribution Width 14.9 % (11.5-17.5); White Blood Count 7.3 K/mm3 (4.8-10.8)
[2021-07-11 13:35] LABS: Chloride 102 mmol/L (98-107); Potassium 4.5 mmoL/L (3.5-5.1); Sodium 133 mmol/L (136-145)
[2021-07-11 13:37] LABS: Alanine Aminotransferase 61 U/L (12-78); Aspartate Amino Transferase 61 U/L (14-36); Blood Urea Nitrogen 19 mg/dl (7-17); Estimated Glomerular Filt Rate 73 ml/min (>60); GFR (African American) 88 ML/MIN (>60)
[2021-07-11 13:38] LABS: Albumin Level 3.9 g/dl (3.5-5.0); Albumin/Globulin Ratio 1.4 (1.1-1.8); Alkaline Phosphatase 86 U/L (38-126); Anion Gap 12.5 mEq/L (5-15); Bilirubin,Total 0.6 mg/dl (0.2-1.3); Calcium 8.8 mg/dl (8.4-10.2); Carbon Dioxide 23 mmol/L (22.0-30.0); Chol/HDL Ratio 5.9 (1-3.5); Cholesterol 282 mg/dl (140-200); Globulin 2.7 g/dL (1.3-3.2); Glucose 209 mg/dl (74-100); HDL Cholesterol 48 mg/dl (40-60); Total Protein,Serum 6.6 g/dl (6.3-8.2); Triglycerides 369 mg/dl (30-150); VLDL Cholesterol 74 mg/dL (0-40)
[2021-07-11 13:51] LABS: Direct LDL Cholesterol 174.49 mg/dL (100-129)
[2021-07-11 14:09] LABS: Thyroid Stimulating Hormone 2.08 uIU/mL (0.465-4.68)
[2021-07-11 14:10] LABS: Hemoglobin A1C 9.7 % (4.0-6.0)
[2021-07-11 14:47] LABS: 25-OH Vitamin D, Total 29.1 ng/mL (30-100)
== END ==
PROVIDERS: Visit Provider Physician Assistant
DX: Z00.00 Encounter for general adult medical examination without abnormal findings (principal); E55.9 Vitamin D deficiency, unspecified; I10 Essential (primary) hypertension; E11.69 Type 2 diabetes mellitus with other specified complication; E78.5 Hyperlipidemia, unspecified; T14.8XXA Other injury of unspecified body region, initial encounter; Z79.899 Other long term (current) drug therapy; Z79.84 Long term (current) use of oral hypoglycemic drugs
CPT/HCPCS: 80053; 80061; 82306; 83036; 84443; 85025

== ENCOUNTER → 2021-08-02 08:48 | Outpatient (CLI) | payer MEDICARE, SELFPAY ==
--- NOTE | 2021-08-02 08:48 | XR_ITS ---
FINAL REPORT TECHNIQUE: Bone densitometry calculations of the lumbar spine and both hips were obtained. CLINICAL HISTORY: .post menopausal FINDINGS: DEXA BONE DENSITY AXIAL SKELETON Using L1-4, the bone mineral density of the spine is 1.093 g/cm2, corresponding to T-score of 0.4. Using the left hip, the bone mineral density of the femoral neck is 0.858 g/cm2, corresponding to a T-score of -0.7. Using the right hip, the bone mineral density of the femoral neck is 0.794 g/cm2, corresponding to a T-score of -0.5. NOTE: T-score: Standard deviation compared with peak bone mass of young adult mean. *Following the recommendations of the International Society of Bone densitometry, classification of hip BMD is based on the lower of two T-scores; total hip or femoral neck. IMPRESSION: Normal bone mineral density of the lumbar spine and hips. Reviewed, Interpreted and Dictated by Perfecto Bañuelos MD Transcribed by Cecily Otero Authenticated by Perfecto Bañuelos MD on 08/02/2021 10:30:26 AM [facility]
--- NOTE | 2021-08-02 08:48 | MM_ITS ---
PROCEDURE INFORMATION: Exam: MG Bilateral Screening 3D Mammography Exam date and time: 08/02/2021 8:57 AM Age: 61 years old Clinical indication: Screening examination TECHNIQUE: Imaging protocol: Bilateral Screening tomosynthesis and 2D mammography including computer-aided detection (CAD) when performed. COMPARISON: No relevant prior studies available. FINDINGS: MAMMOGRAPHY: Breast composition: The breasts are almost entirely fatty. Mass: None. Architectural distortion: None. Calcifications: No suspicious calcifications. Asymmetric density: None. Skin thickening: None. Axillary adenopathy: None. IMPRESSION: No mammographic evidence of malignancy. Annual screening is recommended unless otherwise clinically indicated. ASSESSMENT: BI-RADS Category 1: Negative
== END ==
PROVIDERS: PCP Physician Assistant; Visit Provider Physician Assistant
DX: N95.9 Unspecified menopausal and perimenopausal disorder (principal); Z12.31 Encounter for screening mammogram for malignant neoplasm of breast
CPT/HCPCS: 77063; 77067; 77080

== ENCOUNTER → 2021-08-14 09:34 | Outpatient (CLI) | payer MEDICARE, SELFPAY | PROVIDERS: Visit Provider Internal Medicine Gastroenterology | DX: Z01.812 Encounter for preprocedural laboratory examination (principal); Z11.52 Encounter for screening for COVID-19; Z12.11 Encounter for screening for malignant neoplasm of colon | CPT/HCPCS: C9803; U0003; U0005 ==

== ENCOUNTER 2021-08-16 09:50 | Day surgery (SDC) | payer MEDICARE, SELFPAY ==
[2021-08-15 08:26] VITALS: BMI 33.6
[2021-08-16 10:30] VITALS: BP 159/93; PULSE 93; RESP 18; TEMP 36.6; O2SAT 98
[2021-08-16 10:58] VITALS: O2SAT 98
--- NOTE | 2021-08-16 11:23 | HMH.SCOPE ---
- Procedure: Date: 08/16/21 Patient Date of :: 1960 Procedure Performed:: Screening colonoscopy exam Indications:: Age for colon cancer screening Performing Provider:: Lon Colunga MD Referring Provider:: Wendy Luz PA-C Sedation:: Propofol Procedure:: After placing the patient in the left lateral decubitus position, the colonoscopy was gently inserted into the rectum and under direct visualization advanced to the cecum which was identified by transillumination in the right lower quadrant, identification of the ileocecal valve, appendiceal orifice, and cecal strap. Color, texture, mucosa, and anatomy of the colon were carefully examined with the scope. Findings:: Anal canal: normal Rectum: normal Sigmoid colon: normal without polyps or inflammatory changes. 0.5 cm polyp proximal sigmoid/snared and removed. 0.25cm polyp distal sigmoid/removed with biopsy forceps Descending colon: normal without polyps or inflammatory changes Splenic flexure: normal Transverse colon: normal without polyps or inflammatory changes Hepatic flexure: normal Ascending colon: normal without polyps or inflammatory changes Cecum: normal Terminal ileum: not visualized Impression: Sigmoid polyps x 2 Specimens:: Sigmoid polyps x 2 Recommendations:: Repeat colonoscopy exam in THREE-FIVE years or so, sooner if clinically indicated Complications:: None Estimated blood obtained (mL): 0
[2021-08-16 11:26] VITALS: BP 120/72; PULSE 93; RESP 16; TEMP 36.3; O2SAT 97
[2021-08-16 11:36] VITALS: BP 135/96; PULSE 93; RESP 16; O2SAT 97
[2021-08-16 11:46] VITALS: BP 150/75; PULSE 89; RESP 16; O2SAT 97
--- NOTE | 2021-08-16 11:58 | HMH.ANESCL ---
[facility] Anesthesia Checklist - Patient Identification Patient Identification: Arm Band, Verbal (Name & ) - Structural Data Admitted From: Home Planned Operative Procedure/s: Colonoscopy Consent for Planned Operative Procedure(s) Verified: Yes Verified Documents: Surgical Consent - NPO Status Verified Time NPO: 05:00 - Additional verifications Anesthesia Reactions: No Hx Blood Transfusions: No Blood Transfusion Reaction: No - Airway Assessment C-Spine Mobility Assessed: Yes TMJ Mobility Assessed: Yes Dentition: Good Dentition - Neurological Assessment Level of Consciousness: Awake, Alert, Appropriate - Anesthesia Plan Anesthesia Risk discussed: Yes ASA Class: II Anesthesia Type: MAC [facility] History I have reviewed the patient's past medical history: Yes Medical History: Reports:: Depression, Diabetes Mellitus Type 2, Gastroesophageal Reflux Disease(GERD), Hyperlipidemia, Hypertension Denies:: Cancer, Diabetes Mellitus Type 1, Internal Pacemaker, MRSA, Seizures *Have you ever received a pneumonia vaccine?: No *Have you received a flu vaccine this season?: No Other Medical History: Reports: Thyroid Disease. Denies: Blood Transfusion Reaction Anesthesia experience/problems:: none Laterality Cases: Bilateral: Arthroscopy Shoulder Other Surgeries: Yes: Cardiac Catheterization, EGD, Hysterectomy-Total. No: Pacemaker Amputation: No Fractures: No - *Social History Last grade of school completed: High school graduate Smoking Status: Never smoker Alcohol Intake: never Alcohol Intake Frequency:: holidays/special occasions only Substance Use Type: denies use *Occupational Status:: disabled Housing: house Household Members: spouse *Travel in the last 8 weeks: None - Psychiatric History Pschychiatric History:: Reports:: Depression Family Hx:: Cancer, Hypertension
[2021-08-16 12:10] VITALS: BP 159/79; PULSE 93; RESP 16; TEMP 36.3; O2SAT 97
[2021-08-17 09:12] LABS: POC Glucose,Bedside 298 (70-110)
== END 2021-08-16 12:10 | disposition home or self-care (01) ==
LOC: OUTP 09:52
PROVIDERS: PCP Physician Assistant; Visit Provider Internal Medicine Gastroenterology
PROC: 0DJD8ZZ Inspection of Lower Intestinal Tract, Via Natural or Artificial Opening Endoscopic (ICD-10-PCS; CPT 45378; principal; 2021-08-16 11:30)
DX: Z12.11 Encounter for screening for malignant neoplasm of colon (principal); K63.5 Polyp of colon; F32.A Depression, unspecified; E11.9 Type 2 diabetes mellitus without complications; K21.9 Gastro-esophageal reflux disease without esophagitis; E78.5 Hyperlipidemia, unspecified; I10 Essential (primary) hypertension; E07.9 Disorder of thyroid, unspecified; Z88.1 Allergy status to other antibiotic agents; Z88.5 Allergy status to narcotic agent
CPT/HCPCS: 45385; 82962; 88305

== ENCOUNTER 2022-01-11 10:19 | Emergency (ER) | payer MEDICARE, SELFPAY ==
[2022-01-11 10:20] VITALS: BP 187/101; PULSE 108; RESP 20; TEMP 36.5; O2SAT 98; BMI 33.6
--- NOTE | 2022-01-11 10:29 | XR_ITS ---
FINAL REPORT CLINICAL HISTORY: uri FINDINGS: TWO-VIEW CHEST The heart size is normal. The mediastinum is normal. The lungs are clear. There is no pneumothorax. IMPRESSION: No acute cardiopulmonary process. Reviewed, Interpreted and Dictated by Perfecto Bañuelos MD Transcribed by Lisha Escobar Authenticated and [facility]
[2022-01-11 10:32] LABS: Coronavirus 19, PCR Not Detected (NotDetected); Influenza A, PCR Not Detected (NotDetected); Influenza B, PCR Not Detected (NotDetected)
--- NOTE | 2022-01-11 10:39 | PC.NURSE ---
Pt to RAD for CXR
--- NOTE | 2022-01-11 10:44 | PC.NURSE ---
Pt back from rad; Rn @ BS to give meds
--- NOTE | 2022-01-11 11:12 | HMH.EDGENADL ---
Discharge Plan Disposition Patient Disposition: Home, Self-Care Condition: Good Prescriptions Prescriptions: New doxycycline monohydrate 100 mg capsule 100 mg PO BID 10 Days Qty: 20 0RF No Action gabapentin 600 mg tablet 600 mg PO TID hydrocodone-acetaminophen 7.5-325 mg tablet 1 tab PO Q8H PRN (Reason: pain) peg 3350-electrolytes [GaviLyte-G] 236-22.74-6.74 -5.86 gram recon soln 240 ml PO Q10M Qty: 4000 0RF Rx Instructions: see mailed instructions trazodone 100 mg tablet See Rx Instructions .ROUTE .COMPLEX Qty: 180 2RF Dose Instruction: TAKE 2 TABLETS BY MOUTH AT BEDTIME Rx Instructions: TAKE 2 TABLETS BY MOUTH AT BEDTIME tizanidine 4 mg tablet See Rx Instructions .ROUTE .COMPLEX Qty: 90 2RF Dose Instruction: TAKE ONE TABLET BY MOUTH EVERY EIGHT HOURS NEEDED FOR MUSCLE RELAXER Rx Instructions: TAKE ONE TABLET BY MOUTH EVERY EIGHT HOURS NEEDED FOR MUSCLE RELAXER atorvastatin 80 MG tablet 80 mg PO DAILY citalopram 40 MG tablet 40 mg PO DAILY lisinopril 20 MG tablet See Rx Instructions .Route .COMPLEX Rx Instructions: TAKE 1 TABLET BY MOUTH TWICE DAILY glipizide 10 MG tablet 10 mg PO BID aspirin 81 MG tablet,delayed release (DR/EC) 81 mg PO DAILY levothyroxine 50 MCG tablet See Rx Instructions .Route .COMPLEX Rx Instructions: TAKE 1 TABLET BY MOUTH IN THE MORNING ON AN EMPTY STOMACH pantoprazole 40 MG tablet,delayed release (DR/EC) 40 mg PO BID metformin 1,000 MG tablet See Rx Instructions .Route .COMPLEX Rx Instructions: TAKE 1 TABLET BY MOUTH TWICE DAILY FOR DIABETES ergocalciferol (vitamin D2) 1,250 MCG capsule 50,000 unit PO QWEEK fluticasone propionate 120 SPR/BOT bottle 1 spr NS DAILY Rx Instructions: each nostril daily cholecalciferol (vitamin D3) 1,000 UNIT capsule 1,000 unit PO DAILY Rx Instructions: administer with meals Referrals Follow up/Referrals: Wendy Luz PA [Primary Care Provider] - See instructions Clinical Impressions Clinical Impression: Sinusitis, Bronchitis Instructions Patient Instructions: DI for Sinusitis Discharge ED Provider: Gilberto Robledo Adult [facility] General Chief complaint: Upper Respiratory Infection Stated complaint: chest congestion Time Seen by Provider: 01/11/22 10:20 Mode of Arrival: Ambulatory Source of Information: Patient Limitations: No Limitations Description of Symptoms (Recalled from ER Triage Doc. by RN): to ed per pvt car with c/o chest and head congestion x 2 days. states she is coughing up green sputum History of Present Illness HPI narrative: This is a 61-year-old female presented to the emergency department with some cough and congestion. The patient is had the symptoms for the last 2 days. Patient states that she has had some runny nose and productive cough. Green in nature. Patient states that she has been taking some vuuu-[id number]-wwptscp cough medicine without any relief. She denies any recent sick contacts. She does not have any fevers or chills. No headache or change in vision. No focal weakness. No chest pain. No abdominal pain or vomiting. No diarrhea. Related Data Home Medications Medication Instructions Recorded Confirmed gabapentin 600 mg tablet 600 mg PO TID Pain 07/11/21 08/15/21 hydrocodone 7.5 mg-acetaminophen 1 tab PO Q8H PRN pain 07/11/21 08/15/21 325 mg tablet aspirin 81 mg tablet,delayed 81 mg PO DAILY heart health 08/15/21 08/15/21 release atorvastatin 80 mg tablet 80 mg PO DAILY Cholesterol 08/15/21 08/15/21 cholecalciferol (vitamin D3) 25 1,000 unit PO DAILY Supplement 08/15/21 08/15/21 mcg (1,000 unit) capsule citalopram 40 mg tablet 40 mg PO DAILY Depression 08/15/21 08/15/21 ergocalciferol (vitamin D2) 1,250 50,000 unit PO QWEEK Supplement 08/15/21 08/15/21 mcg (50,000 unit) capsule fluticasone propionate 5
[2022-01-11 11:31] VITALS: BP 136/84; PULSE 67; O2SAT 99
--- NOTE | 2022-01-11 12:00 | PC.NURSE ---
called xray to check on xray reading
[2022-01-11 12:24] VITALS: BP 165/100; PULSE 100; RESP 16; TEMP 36.6; O2SAT 97
== END 2022-01-11 12:26 | disposition home or self-care (01) ==
PROVIDERS: Emergency Provider Emergency Medicine; PCP Physician Assistant
DX: J40 Bronchitis, not specified as acute or chronic (principal); J32.9 Chronic sinusitis, unspecified; E11.9 Type 2 diabetes mellitus without complications; I10 Essential (primary) hypertension; K21.9 Gastro-esophageal reflux disease without esophagitis; F32.A Depression, unspecified; E03.9 Hypothyroidism, unspecified; G47.33 Obstructive sleep apnea (adult) (pediatric)
CPT/HCPCS: 71046; 99283; C9803; U0003; U0005

== ENCOUNTER 2022-03-20 15:22 | Emergency (ER) | payer MEDICARE, SELFPAY ==
[2022-03-20 18:36] VITALS: BP 162/89; PULSE 89; RESP 18; TEMP 36.6; O2SAT 97; BMI 32.5
[2022-03-20 18:47] LABS: Coronavirus 19, PCR Not Detected (NotDetected); Influenza A, PCR Not Detected (NotDetected); Influenza B, PCR Not Detected (NotDetected)
[2022-03-20 19:01] VITALS: BP 150/80; PULSE 76; RESP 18; O2SAT 98
--- NOTE | 2022-03-20 20:00 | CT_ITS ---
PROCEDURE INFORMATION: Exam: CT Abdomen And Pelvis With Contrast Exam date and time: 03/20/2022 10:07 PM Age: 62 years old Clinical indication: Abdominal pain; Generalized; Additional info: Abdo pain TECHNIQUE: Imaging protocol: Computed tomography of the abdomen and pelvis with contrast. Radiation optimization: All CT scans at this facility use at least one of these dose optimization techniques: automated exposure control; mA and/or kV adjustment per patient size (includes targeted exams where dose is matched to clinical indication); or iterative reconstruction. Contrast material: ISOVUE; Contrast volume: 75 ml; Contrast route: IV; COMPARISON: CT ABDOMEN PELVIS WO CON 01/19/2021 4:21 PM FINDINGS: Liver: Subtle morphological changes in the liver that may indicate underlying cirrhosis. No liver mass. Gallbladder and bile ducts: Cholecystectomy. Pancreas: Normal. No ductal dilation. Spleen: Normal. No splenomegaly. Adrenal glands: Normal. No mass. Kidneys and ureters: Normal. No hydronephrosis. Stomach and bowel: Unremarkable. No obstruction. No mucosal thickening. Appendix: No evidence of appendicitis. Intraperitoneal space: Unremarkable. No free air. No significant fluid collection. Vasculature: Unremarkable. No abdominal aortic aneurysm. Lymph nodes: Unremarkable. No enlarged lymph nodes. Urinary bladder: Unremarkable as visualized. Reproductive: Hysterectomy. Bones/joints: Unremarkable. No acute fracture. Soft tissues: Unremarkable. IMPRESSION: Possible hepatic morphological changes of cirrhosis.
--- NOTE | 2022-03-20 20:00 | HMH.EDGENADL ---
Discharge Plan Disposition Patient Disposition: Home, Self-Care Condition: Good Prescriptions Prescriptions: New hyoscyamine sulfate [Levsin] 0.125 mg tablet 0.125 mg PO QID Qty: 20 0RF No Action gabapentin 600 mg tablet 600 mg PO TID hydrocodone-acetaminophen 7.5-325 mg tablet 1 tab PO Q8H PRN (Reason: pain) peg 3350-electrolytes [GaviLyte-G] 236-22.74-6.74 -5.86 gram recon soln 240 ml PO Q10M Qty: 4000 0RF Rx Instructions: see mailed instructions tizanidine 4 mg tablet See Rx Instructions .ROUTE .COMPLEX Qty: 90 2RF Dose Instruction: TAKE ONE TABLET BY MOUTH EVERY EIGHT HOURS NEEDED FOR MUSCLE RELAXER Rx Instructions: TAKE ONE TABLET BY MOUTH EVERY EIGHT HOURS NEEDED FOR MUSCLE RELAXER trazodone 100 mg tablet See Rx Instructions .ROUTE .COMPLEX Qty: 180 0RF Dose Instruction: TAKE 2 TABLETS BY MOUTH ONCE DAILY AT BEDTIME Rx Instructions: TAKE 2 TABLETS BY MOUTH ONCE DAILY AT BEDTIME atorvastatin 80 MG tablet 80 mg PO DAILY citalopram 40 MG tablet 40 mg PO DAILY lisinopril 20 MG tablet See Rx Instructions .Route .COMPLEX Rx Instructions: TAKE 1 TABLET BY MOUTH TWICE DAILY glipizide 10 MG tablet 10 mg PO BID aspirin 81 MG tablet,delayed release (DR/EC) 81 mg PO DAILY levothyroxine 50 MCG tablet See Rx Instructions .Route .COMPLEX Rx Instructions: TAKE 1 TABLET BY MOUTH IN THE MORNING ON AN EMPTY STOMACH pantoprazole 40 MG tablet,delayed release (DR/EC) 40 mg PO BID metformin 1,000 MG tablet See Rx Instructions .Route .COMPLEX Rx Instructions: TAKE 1 TABLET BY MOUTH TWICE DAILY FOR DIABETES ergocalciferol (vitamin D2) 1,250 MCG capsule 50,000 unit PO QWEEK fluticasone propionate 120 SPR/BOT bottle 1 spr NS DAILY Rx Instructions: each nostril daily cholecalciferol (vitamin D3) 1,000 UNIT capsule 1,000 unit PO DAILY Rx Instructions: administer with meals doxycycline monohydrate 100 mg capsule 100 mg PO BID 10 Days Qty: 20 0RF Referrals Follow up/Referrals: Wendy Luz PA [Primary Care Provider] - See instructions Clinical Impressions Clinical Impression: Acute epigastric pain, Vomiting, Diarrhea Instructions Patient Instructions: DI for Nausea -- Adult Discharge ED Provider: Jeff Emerson General Adult HPI <Gilberto Vallejo MD - Last Filed: 03/20/22 20:05> General Chief complaint: Nausea/Vomiting/Diarrhea Stated complaint: V&D,congestion Time Seen by Provider: 03/20/22 19:51 Mode of Arrival: Ambulatory Source of Information: Patient Limitations: No Limitations Description of Symptoms (Recalled from ER Triage Doc. by RN): c/o n/v and runny nose for 4 days. States she was seen at [place] last night and was told it was gastritis and was given zofran which helps some. History of Present Illness HPI narrative: Patient states for the past 4 days he has had epigastric pain that comes and goes, lasting 30 minutes at a time. When it comes on it is severe. Associated with vomiting and diarrhea. The pain sometimes radiates around to her back. Denies fever. States that she has a prior history of cholecystectomy and hysterectomy. She says she has had diabetic gastroparesis and has had some epigastric discomfort from that, but she says this is a whole different type of pain . She went to [facility] emergency department a couple of nights ago. She says that she had her nose swabbed and was told she had gastritis. No other tests were done. She is a nondrinker, non-smoker. She drove her self to the emergency department today. Related Data Home Medications Medication Instructions Recorded Confirmed gabapentin 600 mg tablet 600 mg PO TID Pain 07/11/21 08/15/21 hydrocodone 7.5 mg-acetaminophen 1 tab PO Q8H PRN pain 07/11/21 08/15/21 325 mg tablet aspirin 81 mg tablet,delayed 81 mg PO DAILY [facility]
[2022-03-20 20:31] LABS: Microscopic, Urine URINE MICROSCOPIC (MICROSCOPIC)
[2022-03-20 20:36] LABS: Appearance,Urine CLEAR (Clear); Blood, Urine Negative (Negative); Color,Urine YELLOW (Yellow); Glucose,Urine (UA) 3+ (Negative); Ketones,Urine 1+ (Negative); Leukocyte Esterase,Urine Negative (Negative); Nitrate,Urine Negative (Negative); Protein,Urine Negative (Negative); Specific Gravity, Urine 1.025 (1.005-1.030); Urobilinogen,Urine 0.2 EU/dl (0.2)
[2022-03-20 20:39] LABS: Bilirubin,Urine Negative (Negative)
[2022-03-20 21:17] LABS: Basophils # 0.1 K/mm3 (0-0.2); Basophils % 1.6 % (0.1-2.0); Eosinophils # 0.2 K/mm3 (0.0-0.4); Eosinophils % 2.2 % (0.1-12.0); Hematocrit 45.8 % (37.0-47.0); Hemoglobin 15.2 g/dL (12.2-16.2); Lymphocytes # 3.6 K/mm3 (0.7-4.5); Lymphocytes % 42.1 % (10-50); Mean Corpuscular HGB Conc 33.1 g/dL (31.8-35.4); Mean Corpuscular Volume 93.6 fl (81-99); Mean Platelet Volume 7.7 fl (7.4-10.4); Monocytes # 0.4 K/mm3 (0.1-1.0); Monocytes % 4.6 % (1.7-9.3); Neutrophils # 4.2 K/mm3 (1.8-7.8); Neutrophils % 49.5 % (37.0-80.0); Platelet Count 225 K/mm3 (142-424); Red Cell Distribution Width 13.3 % (11.5-17.5); White Blood Count 8.5 K/mm3 (4.8-10.8)
[2022-03-20 21:19] LABS: Bacteria,Urine 1+ /lpf
[2022-03-20 21:53] LABS: Chloride 104 mmol/L (98-107); Sodium 136 mmol/L (136-145)
[2022-03-20 21:54] LABS: Potassium 3.6 mmoL/L (3.5-5.1)
[2022-03-20 21:56] LABS: Alanine Aminotransferase 31 U/L (12-78); Alkaline Phosphatase 81 U/L (38-126); Anion Gap 10.6 mEq/L (5-15); Aspartate Amino Transferase 37 U/L (14-36); Bilirubin,Total 0.6 mg/dl (0.2-1.3); Blood Urea Nitrogen 9 mg/dl (7-17); Carbon Dioxide 25 mmol/L (22.0-30.0); Creatinine Clearance Estimated 77 mL/min (50-200); Estimated Glomerular Filt Rate 125 ml/min (>60); GFR (African American) 151 ML/MIN (>60); Lipase 122 U/L (23-300)
[2022-03-20 21:57] LABS: Albumin Level 4.2 g/dl (3.5-5.0); Albumin/Globulin Ratio 1.4 (1.1-1.8); Calcium 9.3 mg/dl (8.4-10.2); Glucose 182 mg/dl (74-100); Total Protein,Serum 7.2 g/dl (6.3-8.2)
[2022-03-20 22:32] LABS: Troponin I < 0.01 ng/ml (0.00-0.034)
--- NOTE | 2022-03-20 23:07 | PC.NURSE ---
called radiology to check status of ct reading
[2022-03-20 23:27] VITALS: BP 130/78; PULSE 80; RESP 18; TEMP 36.8; O2SAT 98
== END 2022-03-20 23:45 | disposition home or self-care (01) ==
PROVIDERS: Emergency Medicine; Emergency Provider Emergency Medicine; PCP Physician Assistant
DX: R19.7 Diarrhea, unspecified (principal); R10.13 Epigastric pain; E11.9 Type 2 diabetes mellitus without complications; F32.A Depression, unspecified; I10 Essential (primary) hypertension; E78.5 Hyperlipidemia, unspecified; E03.9 Hypothyroidism, unspecified; G47.33 Obstructive sleep apnea (adult) (pediatric)
CPT/HCPCS: 74177; 80053; 81001; 83690; 84484; 85025; 96365; 96375; 99284; C9803; J2405; Q9967; U0003; U0005

== ENCOUNTER → 2022-09-05 23:16 | Outpatient (CLI) | payer MEDICARE, SELFPAY ==
[2022-09-05 18:16] LABS: Basophils # 0.1 K/mm3 (0-0.2); Basophils % 0.5 % (0.1-2.0); Eosinophils # 0.1 K/mm3 (0.0-0.4); Eosinophils % 0.8 % (0.1-12.0); Hematocrit 45.3 % (37.0-47.0); Hemoglobin 14.8 g/dL (12.2-16.2); Lymphocytes # 3.1 K/mm3 (0.7-4.5); Lymphocytes % 30.2 % (10-50); Mean Corpuscular HGB Conc 32.7 g/dL (31.8-35.4); Mean Corpuscular Hemoglobin 30.6 pg (27.0-31.2); Mean Corpuscular Volume 93.6 fl (81-99); Mean Platelet Volume 9.2 fl (7.4-10.4); Monocytes # 0.6 K/mm3 (0.1-1.0); Neutrophils # 6.5 K/mm3 (1.8-7.8); Neutrophils % 62.6 % (37.0-80.0); Platelet Count 286 K/mm3 (142-424); Red Blood Count 4.84 M/mm3 (4.20-5.40); Red Cell Distribution Width 13.8 % (11.5-17.5); White Blood Count 10.4 K/mm3 (4.8-10.8)
[2022-09-05 18:29] LABS: Alanine Aminotransferase 44 U/L (12-78); Albumin Level 4.2 g/dl (3.5-5.0); Albumin/Globulin Ratio 1.4 (1.1-1.8); Alkaline Phosphatase 88 U/L (38-126); Anion Gap 19.5 mEq/L (5-15); Aspartate Amino Transferase 47 U/L (14-36); Bilirubin,Total 0.6 mg/dl (0.2-1.3); Blood Urea Nitrogen 6 mg/dl (7-17); Calcium 9.7 mg/dl (8.4-10.2); Carbon Dioxide 25 mmol/L (22.0-30.0); Chloride 97 mmol/L (98-107); Chol/HDL Ratio 4.9 (1-3.5); Cholesterol 302 mg/dl (140-200); Estimated Glomerular Filt Rate 125 ml/min (>60); GFR (African American) 151 ML/MIN (>60); Glucose 167 mg/dl (74-100); HDL Cholesterol 62 mg/dl (40-60); Potassium 4.5 mmoL/L (3.5-5.1); Sodium 137 mmol/L (136-145); Total Protein,Serum 7.2 g/dl (6.3-8.2); Triglycerides 385 mg/dl (30-150); VLDL Cholesterol 77 mg/dL (0-40)
[2022-09-05 18:36] LABS: Microalbumin/Creatinine Ratio 55.2
[2022-09-05 18:39] LABS: Creatinine,Urine Random 21 mg/dL (Not Estab.)
[2022-09-05 18:40] LABS: Direct LDL Cholesterol 208.15 mg/dL (100-129)
[2022-09-05 18:49] LABS: 25-OH Vitamin D, Total 21.7 ng/mL (30-100)
[2022-09-05 18:51] LABS: Hemoglobin A1C 10.5 % (4.0-6.0)
[2022-09-05 19:03] LABS: Thyroid Stimulating Hormone 1.72 uIU/mL (0.465-4.68)
[2022-09-05 19:22] LABS: Vitamin B12 967 pg/mL (239-931)
== END ==
PROVIDERS: PCP Physician Assistant; Visit Provider Physician Assistant
DX: E11.69 Type 2 diabetes mellitus with other specified complication (principal); E55.9 Vitamin D deficiency, unspecified; Z79.84 Long term (current) use of oral hypoglycemic drugs
CPT/HCPCS: 80053; 80061; 82043; 82306; 82570; 82607; 83036; 84443; 85025

== ENCOUNTER 2023-02-01 10:49 | Emergency (ER) | payer MEDICARE, SELFPAY ==
[2023-02-01 10:55] VITALS: BP 131/86; PULSE 88; RESP 18; TEMP 37.2; O2SAT 98; BMI 30.4
--- NOTE | 2023-02-01 11:16 | EXP.UTC ---
Discharge Plan Disposition Patient Disposition: Home, Self-Care Condition: Good Prescriptions Prescriptions: New doxycycline monohydrate 100 mg capsule 100 mg PO BID 10 Days Qty: 20 0RF fluticasone propionate [Flonase Allergy Relief] 50 mcg/actuation spray,suspension 1 - 2 spray intranasal DAILY Qty: 16 0RF Rx Instructions: administer into each nostril No Action gabapentin 600 mg tablet 600 mg PO TID clopidogrel 75 mg tablet 75 mg PO DAILY hydrocodone-acetaminophen 7.5-325 mg tablet 1 tab PO TID Patient Comments: take 1 tab(s) by mouth 3 times a day. Do not fill sooner than every 28 days unless closed. tizanidine 4 mg tablet 8 mg PO Q8H PRN Patient Comments: take 2 tab(s) orally every 8 hours for 30 day(s) Eliquis 5 mg tablet 5 mg PO BID Qty: 180 0RF pantoprazole 40 mg tablet,delayed release (DR/EC) 40 mg PO BID Qty: 180 3RF cefdinir 300 mg capsule 300 mg PO Q12H 10 Days Qty: 20 0RF aspirin 81 mg tablet,delayed release (DR/EC) 81 mg PO DAILY Qty: 90 3RF atorvastatin 80 mg tablet 80 mg PO DAILY Qty: 90 3RF cholecalciferol (vitamin D3) 25 mcg (1,000 unit) capsule 1,000 unit PO DAILY Qty: 90 3RF Rx Instructions: administer with meals citalopram 40 mg tablet 40 mg PO DAILY Qty: 90 3RF ergocalciferol (vitamin D2) 1,250 mcg (50,000 unit) capsule 50,000 unit PO QWEEK Qty: 14 3RF glipizide 10 mg tablet 10 mg PO BID Qty: 180 3RF levothyroxine 50 mcg tablet See Rx Instructions .Route .COMPLEX Qty: 90 3RF Rx Instructions: TAKE 1 TABLET BY MOUTH IN THE MORNING ON AN EMPTY STOMACH lisinopril 20 mg tablet See Rx Instructions .ROUTE .COMPLEX Qty: 180 3RF Dose Instruction: TAKE 1 TABLET BY MOUTH TWICE A DAY Rx Instructions: TAKE 1 TABLET BY MOUTH TWICE A DAY metformin 1,000 mg tablet See Rx Instructions .Route .COMPLEX Qty: 180 3RF Rx Instructions: TAKE 1 TABLET BY MOUTH TWICE DAILY FOR DIABETES trazodone 100 mg tablet See Rx Instructions .ROUTE .COMPLEX Qty: 180 3RF Dose Instruction: TAKE 2 TABLETS BY MOUTH ONCE DAILY AT BEDTIME Rx Instructions: TAKE 2 TABLETS BY MOUTH ONCE DAILY AT BEDTIME fluticasone propionate 120 SPR/BOT bottle 1 spr intranasal DAILY Rx Instructions: each nostril daily Referrals Follow up/Referrals: Wendy Luz PA [Primary Care Provider] - See instructions Discharge ED Provider: Tatyana Lucia [facility] HPI General Stated complaint: SOA Mode of Arrival: Ambulatory Source of Information: Patient Limitations: No Limitations Time Seen by Provider: 02/01/23 11:17 Description of Symptoms (Recalled from Triage Doc. by RN): PATIENT C/O COUGH, CONGESTION, AND BILATERAL EAR PAIN X 3 DAYS HEENT Symptoms (Recalled from RN notes): Yes Resp Symptoms (Recalled from RN notes): Yes Skin Symptoms (Recalled from RN notes): No MS Symptoms (Recalled from RN notes): No Functional Status (Recalled from RN notes): WNL History of Present Illness Provider Complaint: Patient states that she has been having bilateral ear pain, drainage in the back of her throat and cough States that she is worried it is going to settle in her chest States that at times she is coughing up the mucous and others she is not States that today her sinus pressure was worse and pressure in her ears felt worse so she came in to get checked Related Data Home Medications Medication Instructions Recorded Confirmed gabapentin 600 mg tablet 600 mg PO TID Pain 07/11/21 01/08/23 fluticasone propionate 50 1 spr intranasal DAILY Allergy 08/15/21 01/08/23 mcg/actuation nasal symptoms spray,suspension clopidogrel 75 mg tablet 75 mg PO DAILY 01/08/23 01/08/23 hydrocodone 7.5 mg-acetaminophen 1 tab PO TID 01/08/23 01/08/23 325 mg tablet tizanidine 4 mg tablet 8 mg PO Q8H PRN 01/08/23 01/08/23 Previous Rx's Medication Instructions Recorded aspirin 81
[2023-02-01 11:21] VITALS: BP 131/86; PULSE 88; RESP 18; TEMP 37.2; O2SAT 98
== END 2023-02-01 11:33 | disposition home or self-care (01) ==
PROVIDERS: Emergency Provider Nurse Practitioner; PCP Physician Assistant
DX: J20.9 Acute bronchitis, unspecified (principal); J01.90 Acute sinusitis, unspecified; E11.9 Type 2 diabetes mellitus without complications; I10 Essential (primary) hypertension; E78.5 Hyperlipidemia, unspecified; E03.9 Hypothyroidism, unspecified; E53.8 Deficiency of other specified B group vitamins; K21.9 Gastro-esophageal reflux disease without esophagitis; E55.9 Vitamin D deficiency, unspecified; G47.00 Insomnia, unspecified; F32.A Depression, unspecified; Z79.84 Long term (current) use of oral hypoglycemic drugs
CPT/HCPCS: 99212; 99214; G0463

== ENCOUNTER 2023-03-26 11:12 | Emergency (ER) | payer MEDICARE, SELFPAY ==
[2023-03-26 11:50] VITALS: BP 177/92; PULSE 107; RESP 18; TEMP 36.9; O2SAT 97; BMI 30.4
--- NOTE | 2023-03-26 11:51 | EXP.UTC ---
Discharge Plan Disposition Patient Disposition: Home, Self-Care Condition: Good Prescriptions Prescriptions: New fluconazole 100 mg tablet 100 mg PO DAILY 3 Days Qty: 3 0RF methylprednisolone 4 mg Tablets,Dose Pack 4 mg PO DIRECTED Qty: 21 0RF No Action clopidogrel 75 mg tablet 75 mg PO DAILY hydrocodone-acetaminophen 7.5-325 mg tablet 1 tab PO TID Patient Comments: take 1 tab(s) by mouth 3 times a day. Do not fill sooner than every 28 days unless closed. tizanidine 4 mg tablet 8 mg PO Q8H PRN (Reason: Pain (Scale Score 1-3)) Patient Comments: take 2 tab(s) orally every 8 hours for 30 day(s) Eliquis 5 mg tablet 5 mg PO BID Qty: 180 0RF pantoprazole 40 mg tablet,delayed release (DR/EC) 40 mg PO BID Qty: 180 3RF aspirin 81 mg tablet,delayed release (DR/EC) 81 mg PO DAILY Qty: 90 3RF cholecalciferol (vitamin D3) 25 mcg (1,000 unit) capsule 1,000 unit PO DAILY Qty: 90 3RF Rx Instructions: administer with meals citalopram 40 mg tablet 40 mg PO DAILY Qty: 90 3RF glipizide 10 mg tablet 10 mg PO BID Qty: 180 3RF levothyroxine 50 mcg tablet See Rx Instructions .Route .COMPLEX Qty: 90 3RF Rx Instructions: TAKE 1 TABLET BY MOUTH IN THE MORNING ON AN EMPTY STOMACH lisinopril 20 mg tablet See Rx Instructions .ROUTE .COMPLEX Qty: 180 3RF Dose Instruction: TAKE 1 TABLET BY MOUTH TWICE A DAY Rx Instructions: TAKE 1 TABLET BY MOUTH TWICE A DAY metformin 1,000 mg tablet See Rx Instructions .Route .COMPLEX Qty: 180 3RF Rx Instructions: TAKE 1 TABLET BY MOUTH TWICE DAILY FOR DIABETES trazodone 100 mg tablet See Rx Instructions .ROUTE .COMPLEX Qty: 180 3RF Dose Instruction: TAKE 2 TABLETS BY MOUTH ONCE DAILY AT BEDTIME Rx Instructions: TAKE 2 TABLETS BY MOUTH ONCE DAILY AT BEDTIME fluticasone propionate 120 SPR/BOT bottle 1 spr intranasal DAILY Rx Instructions: each nostril daily gabapentin 600 mg tablet 600 mg PO TID Patient Comments: take 1 tab(s) orally 3 times a day for 28 days Referrals Follow up/Referrals: Wendy Luz PA [Primary Care Provider] - See instructions Activity Restrictions/Add. Instructions Additional Instructions/Restrictions: Drink plenty of fluids. Take tylenol or ibuprofen for pain or fever. Take the medications as directed. Follow up with your regular doctor. GO TO THE ER FOR ANY WORSENING SYMPTOMS Clinical Impressions Clinical Impression: Vaginal yeast infection, Serous otitis media Instructions Patient Instructions: Vaginal Yeast Infection, Fluconazole Discharge ED Provider: Vinnie Roach [facility] [place] HPI General Stated complaint: Poss yeast infection Time Seen by Provider: 03/26/23 11:51 History of Present Illness Provider Complaint: She states that for the past 5 days she has had redness and irritation of her perineal region. She denies dysuria and other urinary complaints. She denies back pain and abdominal pain. She also c/o worsening right ear pain for the past 3 days. Related Data Home Medications Medication Instructions Recorded Confirmed fluticasone propionate 50 1 spr intranasal DAILY Allergy 08/15/21 03/26/23 mcg/actuation nasal symptoms spray,suspension clopidogrel 75 mg tablet 75 mg PO DAILY 01/08/23 03/26/23 hydrocodone 7.5 mg-acetaminophen 1 tab PO TID 01/08/23 03/26/23 325 mg tablet tizanidine 4 mg tablet 8 mg PO Q8H PRN Pain (Scale Score 01/08/23 03/26/23 1-3) gabapentin 600 mg tablet 600 mg PO TID 03/26/23 03/26/23 Previous Rx's Medication Instructions Recorded aspirin 81 mg tablet,delayed 81 mg PO DAILY heart health #90 09/05/22 release tabs cholecalciferol (vitamin D3) 25 1,000 unit PO DAILY Supplement #90 09/05/22 mcg (1,000 unit) capsule caps citalopram 40 mg tablet 40 mg PO DAILY Depression #90 tabs 09/05/22 glipizide 10 mg tablet 10 mg PO BID Diabetes
[2023-03-26 12:01] LABS: Apearance,Urine Clear (Clear); Bilirubin,Urine Negative (Negative); Blood, Urine 1+ (Negative); Color,Urine Yellow (Yellow); Glucose,Urine (UA) 500 (Negative); Ketones,Urine Negative (Negative); PH,Urine 5.5 (5.0-8.5); Protein,Urine Negative (Negative); Specific Gravity, Urine 1.005 (1.005-1.030); UTC Leukocyte Esterase,Urine Negative (Negative); UTC Nitrate,Urine Negative (Negative); Urobilinogen,Urine 0.2 EU/dl (0.2)
[2023-03-26 12:14] VITALS: BP 177/92; PULSE 107; RESP 18; TEMP 36.9; O2SAT 97
== END 2023-03-26 12:14 | disposition home or self-care (01) ==
PROVIDERS: Emergency Provider Nurse Practitioner Family; PCP Physician Assistant
DX: H65.01 Acute serous otitis media, right ear (principal); B37.31 Acute candidiasis of vulva and vagina; E11.9 Type 2 diabetes mellitus without complications; E03.9 Hypothyroidism, unspecified; K21.9 Gastro-esophageal reflux disease without esophagitis; I10 Essential (primary) hypertension; Z79.84 Long term (current) use of oral hypoglycemic drugs
CPT/HCPCS: 81003; 99212; 99214; G0463

== ENCOUNTER 2023-04-23 16:52 | Outpatient (CLI) | payer MEDICARE, SELFPAY ==
[2023-04-23 12:41] LABS: Basophils # 0.1 K/mm3 (0-0.2); Basophils % 1.1 % (0.1-2.0); Eosinophils # 0.1 K/mm3 (0.0-0.4); Eosinophils % 1.2 % (0.1-12.0); Hematocrit 49.8 % (37.0-47.0); Hemoglobin 16.6 g/dL (12.2-16.2); Lymphocytes # 3.4 K/mm3 (0.7-4.5); Lymphocytes % 36.8 % (10-50); Mean Corpuscular HGB Conc 33.2 g/dL (31.8-35.4); Mean Corpuscular Hemoglobin 31.4 pg (27.0-31.2); Mean Corpuscular Volume 94.5 fl (81-99); Mean Platelet Volume 8.7 fl (7.4-10.4); Monocytes # 0.5 K/mm3 (0.1-1.0); Monocytes % 5.6 % (1.7-9.3); Neutrophils # 5.1 K/mm3 (1.8-7.8); Neutrophils % 55.3 % (37.0-80.0); Platelet Count 344 K/mm3 (142-424); Red Blood Count 5.27 M/mm3 (4.20-5.40); Red Cell Distribution Width 13.3 % (11.5-17.5); White Blood Count 9.2 K/mm3 (4.8-10.8)
[2023-04-23 16:29] LABS: Alanine Aminotransferase 85 U/L (12-78); Albumin Level 4.8 g/dl (3.5-5.0); Albumin/Globulin Ratio 1.5 (1.1-1.8); Alkaline Phosphatase 173 U/L (38-126); Anion Gap 18.3 mEq/L (5-15); Aspartate Amino Transferase 75 U/L (14-36); Bilirubin,Total 0.8 mg/dl (0.2-1.3); Blood Urea Nitrogen 12 mg/dl (7-17); Calcium 10.1 mg/dl (8.4-10.2); Carbon Dioxide 22 mmol/L (22.0-30.0); Chloride 96 mmol/L (98-107); Estimated Glomerular Filt Rate 85 ml/min (>60); GFR (African American) 102 ML/MIN (>60); Globulin 3.3 g/dL (1.3-3.2); HDL Cholesterol 62 mg/dl (40-60); Potassium 4.3 mmoL/L (3.5-5.1); Sodium 132 mmol/L (136-145); Total Protein,Serum 8.1 g/dl (6.3-8.2)
[2023-04-23 16:40] LABS: Direct LDL Cholesterol 247.74 mg/dL (100-129)
[2023-04-23 16:43] LABS: Chol/HDL Ratio 6.8 (1-3.5); Cholesterol 423 mg/dl (140-200); Triglycerides 512 mg/dl (30-150)
[2023-04-23 16:46] LABS: Glucose 402 mg/dl (74-100)
[2023-04-23 16:59] LABS: Thyroid Stimulating Hormone 1.91 uIU/mL (0.465-4.68)
[2023-04-23 19:04] LABS: Microalbumin/Creatinine Ratio 123.4
[2023-04-23 19:05] LABS: Creatinine,Urine Random 32 mg/dL (Not Estab.)
== END 2023-04-23 23:59 ==
LOC: LAB.DROPOF 16:52
PROVIDERS: PCP Physician Assistant; Visit Provider Physician Assistant
DX: E03.9 Hypothyroidism, unspecified (principal); E11.69 Type 2 diabetes mellitus with other specified complication; E55.9 Vitamin D deficiency, unspecified; Z79.4 Long term (current) use of insulin
CPT/HCPCS: 80053; 80061; 82043; 82306; 82570; 84443; 85025

== ENCOUNTER 2023-05-13 07:28 | Outpatient (CLI) | payer MEDICARE, SELFPAY ==
--- NOTE | 2023-05-13 07:28 | US_ITS ---
FINAL REPORT CLINICAL HISTORY: Elevated liver enzymes COMPARISON: None FINDINGS: Sonographic images of the right upper quadrant were obtained. The pancreas is partially obscured. There is coarse echotexture of the liver, that may represent fatty infiltration or early changes of cirrhosis. The gallbladder has been surgically resected. There is no evidence of biliary ductal dilatation.The common duct measures 3 mm. Limited images of the right kidney are unremarkable. IMPRESSION: Coarse echotexture of the liver, secondary either to fatty infiltration or early changes of cirrhosis. The gallbladder has been surgically resected. Reviewed, Interpreted and Dictated by Perfecto Bañuelos MD Transcribed by Eveline Browne Authenticated and [facility]
--- NOTE | 2023-05-13 07:28 | MM_ITS ---
PROCEDURE INFORMATION: Exam: MG Bilateral Screening 3D Mammography Exam date and time: 05/13/2023 8:04 AM Age: 63 years old Clinical indication: Screening mammogram TECHNIQUE: Imaging protocol: Bilateral Screening tomosynthesis and 2D mammography including computer-aided detection (CAD) when performed. COMPARISON: 1. MG MM DIG SCREENING MAMM BI W/CAD 08/02/2021 8:57 AM 2. MG Screening-Bilateral Mammography 12/17/2016 6:20 PM 3. MG DIG MAMMO BILAT SCREENING 02/06/2011 12:35 PM FINDINGS: MAMMOGRAPHY: Breast composition: There are scattered areas of fibroglandular density. Mass: None. Architectural distortion: No new or suspicious architectural distortion. Calcifications: No new or suspicious calcifications are present Asymmetric density: No new or suspicious asymmetric density is present Skin thickening: None. Axillary adenopathy: None. IMPRESSION: No mammographic evidence of malignancy. Recommend annual screening mammography unless otherwise clinically indicated. ASSESSMENT: BI-RADS category 1: Negative
== END 2023-05-13 23:59 ==
LOC: RAD 07:28
PROVIDERS: PCP Physician Assistant; Visit Provider Physician Assistant
DX: Z12.31 Encounter for screening mammogram for malignant neoplasm of breast (principal); R74.8 Abnormal levels of other serum enzymes
CPT/HCPCS: 76705; 77063; 77067

== ENCOUNTER 2023-05-20 06:15 | Outpatient (CLI) | payer MEDICARE, SELFPAY ==
--- NOTE | 2023-05-20 07:10 | NM_ITS ---
APPROVED REPORT Exam: Nuclear Stress Test Indication: Abnormal EKG, Fatigue, HTN, DM, High cholesterol, Family history Patient Location: Outpatient Stress Tech: Delilah Salcedo [place] Tech:Shayy Rubi, ARRT, RT (R)(N) Ht: 5 ft 3 in Wt: 173 lbs Bra Size: 48B HR: 88 bpm BP: 170/94 mmHg BSA: 1.82 m2 Rhythm: NSR TID: 0.98 BMI: 30.6 History: Abnormal EKG, Fatigue, HTN, DM, High cholesterol, Family history Procedure: Patient received 0.4 mg of intravenous Lexiscan, resting heart rate 88 bpm, resting blood pressure 170/94 mmHg, with Lexiscan maximum heart rate achieved was 114 bpm which is % of the maximum predicted heart rate and blood pressure was 212/112 mmHg. With Lexiscan, patient denied any complaint of chest pain. Cardiac Stress and Resting SPECT Images: Cardiac Stress and Resting SPECT images were obtained using technetium 99m Myoview 30.6 mCi stress and 10.85 mCi at rest. Resting and stress imaging in supine and prone positions demonstrate no evidence of fixed or reversible perfusion defects Gated imaging demonstrates normal global and regional LV systolic function. LVEF is calculated at 64%. Conclusion: No evidence of fixed or reversible perfusion defects Gated imaging demonstrates normal global and regional LV systolic function. LVEF is calculated at 64%. Electronically signed by : Alyssa Valentine MD 05/21/2023 13:21:10
--- NOTE | 2023-05-20 08:00 | CA_ITS ---
APPROVED REPORT Exam: Pharmacologic Technologist: Delilah Dorsey, Ht: 5 ft 3 in Wt: 167 lbs BSA: 1.79 m2 HR: 79 bpm BP: 170/94 mmHg Rhythm: NSR Medical History Medications: Lisinopril,,,,, Levothyroxine,,,,, Aspirin,,,,, Metformin,,,,, Gabapentin,,,,, Pantoprazole,,,,, Glipizide,,,,, Citalopram,,,,, INSULIN,,,,, Vit D3,,,,, CloPIdogrel,,,,, Cefdinir,,,,, Stress Test Details Test: LEXISCAN Reason for pharmacologic stress test: physical limitation. HR Resting HR: 88 bpm Max Heart Rate (APMHR): 157 bpm Max HR Achieved: 114 bpm Target HR (85% APMHR): 133 bpm % of APMHR: 73 Recovery HR: 100 bpm BP Resting BP: 170.0/94.0 mmHg Max BP: 212.0/112.0 mmHg Recovery BP: 201.0/111.0 mmHg ECG Resting ECG: NSR Stress ECG: No significant ST changess Arrhythmia: Frequent PVCs Clinical Exercise duration: 04:01 min Highest Stage Achieved: Exercise capacity: 1.0 METs Stress ECG Conclusion PVC's noted. Symptoms: No chest pain Arrhythmias/Ectopy: Frequent PVCs ST-T Changes: No significant ST changes Conclusion: Unremarkable Lexiscan stress test. Myoview images are reported separately. Test Summary REST . . . . . . . Resting REST 11:13 . . 88 . 170/ 94 . . Stage 1 01:00 . . 113 . . . . Stage 2 01:00 . . 111 . . . . Stage 3 01:00 . . 100 . 195/108 . . Stage 4 01:00 . . 106 . 193/110 . . Stage 4 01:01 . . 106 . 193/110 . Stop exercise at 04:01 RECOVERY 01:00 . . 103 . . . . RECOVERY 02:00 . . 105 . 205/106 . . RECOVERY 03:00 . . 100 . 212/112 . . RECOVERY 04:00 . . 98 . 212/112 . . RECOVERY 05:00 . . 100 . 201/111 . . RECOVERY 05:24 . . 96 . /111 . . Electronically signed by : Alyssa Valentine MD 05/21/2023 13:19:53
--- NOTE | 2023-05-20 08:11 | CA_ITS ---
FINAL REPORT CLINICAL HISTORY: CVA,XENA,HTN,HLD,DM FINDINGS: An ultrasound of the carotid arteries was performed. Duplex Doppler evaluation with spectral analysis was performed. The peak systolic velocity of the right common carotid artery is 89 cm/s. The peak systolic velocity of the right internal carotid artery is 118 cm/s and end diastolic velocity 85 cm/s. Mild plaque disease. The right external carotid artery is patent. The right vertebral artery is patent with antegrade flow. ICA/CCA ratio: 1.62 The peak systolic velocity of the left common carotid artery is 129 cm/s. The peak systolic velocity of the left internal carotid artery is 200 cm/s and end diastolic velocity 41 cm/s. Moderate plaque disease. The left external carotid artery is patent. The left vertebral artery is patent with antegrade flow. ICA/CCA ratio: 2.23 Bilateral patent vertebral arteries with antegrade flow. IMPRESSION: Moderate left ICA stenosis in the 50-69% range. Recommend CTA for further evaluation. Less than 50% right carotid stenosis. Reviewed, Interpreted and Dictated by Danilo Sahu MD Transcribed by Andrew Redmond Authenticated and [facility]
--- NOTE | 2023-05-20 08:11 | CA_ITS ---
APPROVED REPORT EXAM: Comprehensive 2D, Doppler, and color-flow Echocardiogram Motion Picture Projectionist: Tahmina Valdez CRT Ht: 5 ft 3 in Wt: 167lbs BSA: 1.79 BP: 182/104 mmHg Indications: Abnormal ECG, Chest Pain, Diabetes, Palpitations, Hyperlipidemia, Hypertension/HDD 2D Dimensions LA Volume 31.00 mL LA Volume Index 17.32 mL/m2 (M/F) 16-34 M-Mode Dimensions RVDd 2.13 cm (0.9-2.6) LA Diam 3.32 cm (1.9-4.0) LVDd 3.93 cm (3.5-5.7) LVDs 2.37 cm (3.5-5.7) IVSd 1.28 cm (0.6-1.1) PWd 1.04 cm (0.6-1.1) EF (Teich) 70.90% FS 39.70% EDV (Teich) 67.10 mL ESV (Teich) 19.50 mL LV Diastology E Decel Time 180 (160-240 msec) E/A Ratio 0.6 MED A' 8.60 cm/s LAT A' 11.30 cm/s Aortic Valve AO Peak GR. 9.30 mmHg Mitral Valve MV E Max Max. 45.0 (40-130 cm/s) MV A Velocity 72.0 (40-130 cm/s) E/A Ratio 0.62 MV PHT 53.0 ms Pulmonary Valve PV Peak Velocity 77.0 (50-150 cm/s) Tricuspid Valve TR P. Velocity 293.00 cm/s RAP Estimate 10.00 mmHg RVSP 44.30 mmHg Left Ventricle The left ventricle is normal size. The left ventricular systolic function is normal. The left ventricular ejection fraction is within the normal range. There is normal left ventricular wall thickness. There is normal LV segmental wall motion. The left ventricular diastolic function is normal. LVEF is 60%. Right Ventricle The right ventricle is normal size. The right ventricular systolic function is normal. Atria The left atrium size is normal. The right atrium size is normal. There is no Doppler evidence of interatrial shunt. Aortic Valve The aortic valve opens well. There is no aortic valvular stenosis. No aortic regurgitation is present. Mitral Valve The mitral valve is normal in structure. No evidence of mitral valve stenosis. There is no mitral valve regurgitation noted. Tricuspid Valve The tricuspid valve leaflets are thin and pliable. Trace tricuspid regurgitation. There is insufficient TR jet to estimate RVSP. Pulmonic Valve The pulmonary valve is normal in structure. Trace pulmonic regurgitation. Great Vessels The aortic root is normal in size. The ascending aorta is normal in size. IVC is normal in size and collapses >50% with inspiration. Pericardium There is no pericardial effusion. Other Information Study Quality: Fair Conclusion Normal biventricular systolic function. No significant valvular stenosis or regurgitation. Electronically signed by : Alyssa Valentine MD 05/21/2023 11:59:32
[2023-05-20] MEDS: REGADENOSON 0.4MG/5ML SYRINGE 0.400000000000000022 MG IV (08:15)
[2023-05-20] MEDS: ISOTOPE MYOVIEW (PER STUDY) 1 DOSE IV (08:15)
[2023-05-20] MEDS: SODIUM CHLORIDE 0.9% 10ML SYR (RAD ONLY) 10 ML IV ×2 (08:15)
== END 2023-05-20 23:59 ==
LOC: RAD 06:16
PROVIDERS: PCP Physician Assistant; Visit Provider Nurse Practitioner
DX: E11.69 Type 2 diabetes mellitus with other specified complication (principal); E78.5 Hyperlipidemia, unspecified; I10 Essential (primary) hypertension; I26.99 Other pulmonary embolism without acute cor pulmonale; K21.9 Gastro-esophageal reflux disease without esophagitis; R00.0 Tachycardia, unspecified; R94.31 Abnormal electrocardiogram [ECG] [EKG]; I63.89 Other cerebral infarction; Z79.4 Long term (current) use of insulin
CPT/HCPCS: 78452; 93017; 93018; 93306; 93880; A9502; J2785

== ENCOUNTER 2023-05-23 14:45 | Outpatient (CLI) | payer MEDICARE, SELFPAY ==
[2023-05-24 08:34] LABS: HBsAg Screen Negative (Negative); HCV Ab Non Reactive (Non Reactive); Hep A Ab, IGM Negative (Negative); Hep B Core Ab, IgM Negative (Negative)
[2023-05-27 12:25] LABS: Fibrosis Score 0.45
[2023-05-27 12:26] LABS: Fibrosis Stage F1-F2; NASH Grade N2; NASH Score 0.74; Steatosis Grade S2-S3; Steatosis Score 0.95
[2023-05-27 12:27] LABS: Alpha 2-Macroglobulins, Qn 247; Apolipoprotein A-1 158; Bilirubin, Total 0.4; Haptoglobin 109
[2023-05-27 12:28] LABS: ALT (SGPT) P5P 40; AST (SGOT) P5P 28; Cholesterol, Total 200; GGT 172; Triglycerides 484
[2023-05-27 12:29] LABS: Glucose 743
== END 2023-05-23 23:59 ==
LOC: LAB 14:46
PROVIDERS: PCP Physician Assistant; Visit Provider Physician Assistant
DX: R93.2 Abnormal findings on diagnostic imaging of liver and biliary tract (principal); R74.01 Elevation of levels of liver transaminase levels
CPT/HCPCS: 36415; 80074

== ENCOUNTER 2023-05-27 13:41 | Outpatient (CLI) | payer MEDICARE, SELFPAY ==
--- NOTE | 2023-05-27 13:41 | CT_ITS ---
FINAL REPORT CLINICAL HISTORY: abnl ecg/tachycardia/pulm emboli FINDINGS: Thin section axial CT images of the chest were obtained with contrast. 3D reformatted images were also obtained. This study was performed with techniques to keep radiation doses as low as reasonably achievable (ALARA). Individualized dose reduction techniques using automated exposure control or adjustment of mA and/or kV according to the patient's size were employed. There is no evidence of pulmonary embolism. There is no evidence of thoracic aortic aneurysm or dissection. There is no evidence of mediastinal or hilar mass or adenopathy. There is wall thickening of the mid and distal esophagus which is favored to be inflammatory. There is a calcified granuloma in the right lower lobe. There is no suspicious pulmonary mass or nodule. Limited images of the upper abdomen postoperative changes from cholecystectomy. IMPRESSION: No evidence of pulmonary embolism. Wall thickening in the mid and distal esophagus favored to be inflammatory Reviewed, Interpreted and Dictated by Abdoulaye Holloway III, MD Transcribed by Barbie Cortes Authenticated and [facility]
[2023-05-27 14:23] LABS: Blood Urea Nitrogen 14 mg/dl (7-17); Estimated Glomerular Filt Rate 101 ml/min (>60); GFR (African American) 122 ML/MIN (>60)
[2023-05-27] MEDS: IOPAMIDOL-370 (76%);100ML BOTTLE 70 ML IV (14:50)
[2023-05-27] MEDS: 0.9 % SODIUM CHLORIDE 50 ML VIAL IV (14:50)
== END 2023-05-27 23:59 ==
LOC: RAD 13:41
PROVIDERS: PCP Physician Assistant; Visit Provider Nurse Practitioner
DX: E11.69 Type 2 diabetes mellitus with other specified complication (principal); E78.5 Hyperlipidemia, unspecified; I10 Essential (primary) hypertension; I26.99 Other pulmonary embolism without acute cor pulmonale; I63.9 Cerebral infarction, unspecified; K21.9 Gastro-esophageal reflux disease without esophagitis; R00.0 Tachycardia, unspecified; R94.31 Abnormal electrocardiogram [ECG] [EKG]; Z79.4 Long term (current) use of insulin
CPT/HCPCS: 36415; 71275; 82565; 84520; Q9967